=== PATIENT | male | born 1960 | race Caucasian/White ===

== ENCOUNTER 2022-08-02 13:48 | Emergency (ER) | payer OTHER, SELFPAY ==
[2022-08-02 14:24] VITALS: BP 120/76; PULSE 80; RESP 22; TEMP 37; O2SAT 96; BMI 47.3
--- NOTE | 2022-08-02 15:44 | ED.SOB ---
HPI - SOB/Dyspnea General Time Seen by Provider: 15:45 Date Seen: 08/02/22 Chief Complaint: Shortness of Breath/Dyspnea Stated Complaint: Post-op fever, shortness of breath Time Seen by Provider: 08/02/22 15:44 Source: patient, RN notes reviewed and old records reviewed Mode of arrival: ambulatory Limitations: no limitations History of Present Illness HPI Narrative: Simon is a 62-year-old male with history of cervical spine surgery x2 most recently July 23 as well as obesity, anxiety depression, hypertension who comes to the emergency room for evaluation of inability to swallow without coughing and chest congestion. Patient's is present and states that her has had cold-like symptoms for approximately 10 days. She notes that every time he tries to swallow or even take a pill he will have a coughing spell. She has been trying to cut up his pain medications into small pieces. He is on oxycodone 15 mg every 4 hours. He had run out of this medication and had not had it since yesterday had called up to his primary today. They called in his meds to [facility] but because he was in such discomfort he came here to the emergency room. They note that he has been choking on everything even water. They are also worried about congestive heart failure as she was told that his BUN and creatinine has been in the past. Preston also notes that his neck has not had increasing pain and today he had now has tingling in his fingertips bilaterally. His also states he has some tingling in his left foot but that is not new today. He has not had a fever. He does have allergies to penicillins. Primary physicians are at [place] and when they talked to the triage nurse today they were told to come for chest x-ray to our hospital. Related Data Home Medications Medication Instructions Recorded Confirmed acetaminophen 500 mg tablet mg 08/02/22 aspirin 81 mg tablet,delayed 81 mg PO DAILY 08/02/22 08/02/22 release (Adult Aspirin Regimen) atorvastatin 80 mg tablet mg 08/02/22 bupropion HCl 150 mg tablet,12 hr mg PO 08/02/22 sustained-release buspirone 10 mg tablet mg 08/02/22 cyclobenzaprine 5 mg tablet mg 08/02/22 escitalopram oxalate 20 mg tablet mg 08/02/22 gabapentin 300 mg capsule mg 08/02/22 hydrochlorothiazide 25 mg tablet mg 08/02/22 losartan 100 mg tablet mg 08/02/22 metoprolol succinate 100 mg mg PO 08/02/22 tablet,extended release 24 hr omeprazole 20 mg capsule,delayed 20 mg PO DAILY 08/02/22 08/02/22 release oxycodone 5 mg tablet mg 08/02/22 Allergies Allergy/AdvReac Type Severity Reaction Status Date / Time Penicillins Allergy Intermediate Verified 08/02/22 14:33 Review of Systems Status of ROS: Reports: 10 or more systems reviewed and unremarkable except as noted in History and below Const: Reports: fatigue; Denies: fever or chills Eyes: Denies: change in vision ENMT: Reports: throat pain, neck pain, difficulty swallowing and other Cardio: Reports: shortness of breath with exertion; Denies: chest pain or swelling of feet/ankles Resp: Reports: shortness of breath and cough GI: Reports: difficulty swallowing; Denies: abdominal pain, nausea or vomiting : Denies: painful urination Musculo: Reports: neck pain Neuro: Reports: numbness in extremities (Bilateral hands and left foot); Denies: headache Endo: Reports: fatigue PFSH [facility] Surgical History Status post laminectomy Exam Narrative: Exam Narrative: Limited history available in our system. Const: Vital Signs, click to edit/add: Vital Signs - 24 hr 08/02/22 14:24 08/02/22 15:56 08/02/22 16:52 Temperature 98.6 F Pulse Rate [Pulse Oximeter] 80 84 Respiratory Rate 22 16 Blood Pressure [Le ft Upper Arm] 120/76 143/65 H Pulse Oximetry 96 91 93 Oxygen Delivery Me thod Room Air Room Air Patient is alert and oriented. Initially whispering his responses. Seems very anxious. Wants to sit up and he is able to set himself up in bed. His eyes are clear. Oral cavity with moist mucous membranes. Neck is in a cervical collar. Heart with regular rate and rhythm. Oxygen levels vary between 93-98%. Lungs show decreased breath sounds in the bases bilaterally main airway congestion is audible. Abdomen is obese soft nontender. Lower extremities with 1+ peripheral edema. No calf tenderness. Sensation is intact as is strength. Upper extremity strength is intact. There is subjective decreased sensation bilaterally. Documenting provider has reviewed patient's vital signs: yes Course Vital Signs Vital signs: Initial Vital Signs Temperature 98.6 F 08/02/22 14:24 Temperature Source Temporal Artery Scan 08/02/22 14:24 Pulse Rate 80 08/02/22 14:24 Respiratory Rate 22 08/02/22 14:24 Blood Pressure 120/76 08/02/22 14:24 Blood Pressure Mean 90 08/02/22 14:24 Blood Pressure Position Supine 08/02/22 14:24 Pulse Oximetry 96 08/02/22 14:24 Oxygen Delivery Method 08/02/22 14:24 Vital Signs Temperature 98.6 F 08/02/22 14:24 Pulse Rate 80 08/02/22 14:24 Respiratory Rate 22 08/02/22 14:24 Blood Pressure 120/76 08/02/22 14:24 Pulse Oximetry 96 08/02/22 14:24 Oxygen Delivery Method 08/02/22 14:24 Temperature 98.6 F 08/02/22 14:24 Pulse Rate 95 08/02/22 18:45 Respiratory Rate 24 08/02/22 18:45 Blood Pressure 144/86 H 08/02/22 18:45 Pulse Oximetry 93 08/02/22 18:45 Oxygen Delivery Method 08/02/22 18:45 MDM - SOB/Dyspnea MDM Narrative Medical decision making narrative: 1. Pneumonia-definitely increased risk of aspiration pneumonia based on current symptoms. Chest x-ray shows increased lung markings in the right lower lung field. 2. Prevertebral edema-patient has had repeated episodes of dysphagia and choking episodes. CT soft tissue of the neck shows a large area of evolving seroma versus abscess at the level of C4. 3. Anxiety-I think part of patient's anxiety today was actually withdrawal from narcotics as he has been on oxycodone 50 mg every 4 hours since July 23. Now most recent administration was yesterday. Patient is given Dilaudid 0.5 mg and Ativan 0.5 mg IV. 4. Neck pain-improved after medication. Also noted improvement of the patient's subjective tingling of his hands. 5. Disposition-transfer to [facility]. Currently contacting hospitalist for acceptance. Will start antibiotic cefepime 2 g IV. Anaerobic coverage with Flagyl 500 mg IV. Will initiate late fluids at 125 an hour. Keep and patient NPO at this time. I had the pleasure of speaking with Dr. Vora, [place] campaign management senior manager. Patient has been accepted to [place]. Medical Assistant Internal Medicine request that I add vancomycin 2 g and dexamethasone 10 mg IV to medications. Patient did receive additional dose of Dilaudid. I did explain to him I would like to keep him comfortable but I would want to avoid over sedating him in this particular circumstance. His oxygen levels continue to be near 100%. Patient will be ground ambulance transfer to [place]. Medical Records Attestation: I reviewed the patient's medical records. Lab Data Attestation: I reviewed the patient's lab results. Labs: Lab Results 08/02/22 08/02/22 08/02/22 Range/Units 16:10 16:10 20:00 WBC 13.84 H (4.50-11.00) K/uL RBC 4.26 L (4.30-5.90) m/uL Hgb 12.7 L (13.5-17.5) gm/dL Hct 38.5 (37.0-53.0) % MCV 90 (80-100) fL MCH 30 (26-34) pg MCHC 33 (32-36) gm/dL RDW Coeff of Rosa 13.0 (11.5-15.5) % Plt Count 324 (140-440) K/uL Neut % (Auto) 85.3 H (42.0-72.0) % Lymph % (Auto) 7.1 L (20-44) % Whitley % (Auto) 6.2 (0.0-11.0) % Eos % (Auto) 0.4 (0.0-7.0) % Baso % (Auto) 0.3 (0.0-3.0) % Neut # (Auto) 11.80 H (1.7-7.0) K/uL Lymph # (Auto) 1.00 (0.90-2.90) K/uL Whitley # (Auto) 0.90 (0.00-0.90) K/UL Eos # (Auto) 0.10 (0.00-0.50) K/uL Baso # (Auto) 0.00 (0.00-0.30) K/uL Abs Immat Gran (auto) 0.10 (0.00-0.30) K/uL Imm/Tot Granulo (auto) 0.7 % Sodium 132 L (135-149) mmol/L Potassium 4.0 (3.6-5.1) mmol/L Chloride 93 L (96-114) mmol/L Carbon Dioxide 29 (20-32) mmol/L BUN 12 (7-30) mg/dL Creatinine 0.8 (0.5-1.5) mg/dL Estimated Creat Clear 76.59 Estimated GFR 100 ml/min Glucose 105 (60-115) mg/dL Calcium 9.0 (8.4-10.6) mg/dL Total Bilirubin 1.2 (0.1-1.5) mg/dL AST 23 (12-35) U/L ALT 26 (4-50) U/L Alkaline Phosphatase 165 H (40-150) U/L Troponin I < 0.01 L (0.01-0.04) ng/mL C-Reactive Protein 8.3 H (0.5-1.0) mg/dL NT-Pro-B Natriuret Pep 240 H (0-125) PG/mL Total Protein 7.7 (6.0-8.3) g/dL Albumin 3.9 (3.3-5.0) g/dL SARS-CoV-2 (PCR) Negative SARS-CoV-2 (Negative) Imaging Data Cervical spine CT: Attestation: I have reviewed the pertinent imaging results. Radiologist's impression: ?Large prevertebral soft tissue swelling with focal fluid collection and emphysema at the C4 level. Findings could represent postoperative seroma, with developing phlegmon/abscess not completely excluded. 2. Moderate mass effect upon the upper airway. Cervical spine: 1. Interval ACDF C3-5 with C4 corpectomy. Interval posterior fusion C3-6. Mature ACDF and osseous fusion at C5-7. Hardware artifact obscures the canal at the operative levels. 2. At C2-3, disc osteophyte complex with progressed now moderate spinal canal and severe bilateral neural foraminal narrowing. 3. Erosive changes at the C1-2 articulation with degenerative pannus formation. 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 Findings could reflect calcium pyrophosphate deposition disease or rheumatoid arthritis. Soft tissue neck CT: Attestation: I have reviewed the pertinent imaging results. Radiologist's impression: ?Large prevertebral soft tissue swelling with focal fluid collection and emphysema at the C4 level. Findings could represent postoperative seroma, with developing phlegmon/abscess not completely excluded. 2. Moderate mass effect upon the upper airway. Cervical spine: 1. Interval ACDF C3-5 with C4 corpectomy. Interval posterior fusion C3-6. Mature ACDF and osseous fusion at C5-7. Hardware artifact obscures the canal at the operative levels. 2. At C2-3, disc osteophyte complex with progressed now moderate spinal canal and severe bilateral neural foraminal narrowing. 3. Erosive changes at the C1-2 articulation with degenerative pannus formation. 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 Findings could reflect calcium pyrophosphate deposition disease or rheumatoid arthritis. Chest x-ray: Attestation: I have reviewed the pertinent imaging results. My impression: Increased lung markings bilateral lower lung guajardo. Radiologist's impression: Elevation of the right hemidiaphragm. Small patchy opacity in the right lung base may represent atelectasis or infiltrate. No pleural effusion or pneumothorax. Heart size upper limits of normal. Normal pulmonary vascularity. Sternotomy. Small hiatal hernia. Cervical spine hardware. Degenerative changes of left acromioclavicular joint. IMPRESSION: Small patchy opacity in the right lung base may represent atelectasis or infiltrate. ECG Data Attestation: I personally reviewed and interpreted this ECG as follows: ECG interpretation date: 08/02/22 ECG interpretation time: 18:00 Prior ECG tracings: not available for review Interpretation: EKG 1. By my review shows sinus rhythm at a rate of 89. No acute ST or T-wave changes are noted. Critical Care Time Critical Care Time Critical Care Time: Yes Attestation: The patient required my highest level preparedness to intervene emergently and I personally spent this critical care time directly and personally managing the patient. This critical care time included: Obtaining a history; Examining the patient; Pulse oximetry; Ordering and reviewing of studies; Arranging urgent treatment with development of a management plan; Evaluation of patients response to treatment; Frequent reassessment discussions with other providers. This critical care time was performed to assess and manage the high probability of imminent life-threatening deterioration that could result in multiorgan failure. It was exclusive of separate billable procedures and treating other patients and teaching time. Total Critical Care Time in Minutes: 30 Discharge Plan Discharge Clinical Impression: Anxiety, Dysphagia, Pneumonia Patient Disposition: [facility] Condition: Improved Prescriptions: No Action bupropion HCl 150 mg tablet sustained-release 12 hr PO atorvastatin 80 mg tablet metoprolol succinate 100 mg tablet extended release 24 hr PO acetaminophen 500 mg tablet buspirone 10 mg tablet gabapentin 300 mg capsule hydrochlorothiazide 25 mg tablet losartan 100 mg tablet oxycodone 5 mg tablet Label Comments: TAKE ONE TO THREE TABLETS EVERY 4 TO 6 HOURS NEEDED FOR PAIN escitalopram oxalate 20 mg tablet cyclobenzaprine 5 mg tablet aspirin [Adult Aspirin Regimen] 81 mg tablet,delayed release (DR/EC) 81 mg PO DAILY omeprazole 20 mg capsule,delayed release(DR/EC) 20 mg PO DAILY Stand Alone Forms: [employer] Info Instructions
[2022-08-02 15:56] VITALS: O2SAT 91
--- NOTE | 2022-08-02 15:56 | CRLHL7_ITS ---
For Patients: As a result of the Century Cures Act, medical imaging exams and procedure reports are released immediately into your electronic medical record. You may view this report before your referring provider. If you have questions, please contact your health care provider. INDICATION: Congestion. TECHNIQUE: Chest 1 view. COMPARISON: None. FINDINGS: Elevation of the right hemidiaphragm. Small patchy opacity in the right lung base may represent atelectasis or infiltrate. No pleural effusion or pneumothorax. Heart size upper limits of normal. Normal pulmonary vascularity. Sternotomy. Small hiatal hernia. Cervical spine hardware. Degenerative changes of left acromioclavicular joint. IMPRESSION: Small patchy opacity in the right lung base may represent atelectasis or infiltrate. Dictated by Cally Garcia MD @ 08/02/2022 4:59:49 PM (Electronically Signed)
[2022-08-02 16:18] LABS: Basophils Percent Auto 0.3 % (0.0-3.0); Eosinophils Percent Auto 0.4 % (0.0-7.0); Hematocrit 38.5 % (37.0-53.0); Hemoglobin* 12.7 gm/dL (13.5-17.5); Immature Granulocytes Pct Auto 0.7 %; Lymphocytes Percent Auto 7.1 % (20-44); Mean Corpuscular HGB Conc 33 gm/dL (32-36); Mean Corpuscular Hemoglobin 30 pg (26-34); Mean Corpuscular Volume 90 fL (80-100); Monocytes Percent Auto 6.2 % (0.0-11.0); Neutrophils Percent Auto 85.3 % (42.0-72.0); Platelet Count* 324 K/uL (140-440); Red Blood Count 4.26 m/uL (4.30-5.90); White Blood Count* 13.84 K/uL (4.50-11.00)
[2022-08-02] MEDS: LORazepam 2 MG/ML inj 0.5 MG IVP (16:35)
[2022-08-02] MEDS: HYDROmorphone 0.5 mg/0.5 ml inj IVP ×2 (16:35→19:04)
[2022-08-02 16:38] LABS: Albumin* 3.9 g/dL (3.3-5.0); Chloride* 93 mmol/L (96-114); Slide Review Reflex No
[2022-08-02 16:39] LABS: Sodium* 132 mmol/L (135-149)
[2022-08-02 16:41] LABS: Bilirubin Total* 1.2 mg/dL (0.1-1.5); Creatinine* 0.8 mg/dL (0.5-1.5); Est. Creatinine Clearance* 76.59; Estimated Glomerular Filt Rate 100 ml/min
[2022-08-02 16:42] LABS: Alanine Aminotransferase* 26 U/L (4-50); Alkaline Phosphatase* 165 U/L (40-150); Aspartate Amino Transferase* 23 U/L (12-35); Blood Urea Nitrogen* 12 mg/dL (7-30); Carbon Dioxide* 29 mmol/L (20-32); Glucose* 105 mg/dL (60-115); Total Protein* 7.7 g/dL (6.0-8.3)
[2022-08-02 16:45] LABS: C Reactive Protein* 8.3 mg/dL (0.5-1.0)
[2022-08-02 16:50] LABS: NT Pro B Type NatriureticPept* 240 PG/mL (0-125)
[2022-08-02 16:52] VITALS: BP 143/65; PULSE 84; RESP 16; O2SAT 93
--- NOTE | 2022-08-02 16:54 | CRLHL7_ITS ---
For Patients: As a result of the Century Cures Act, medical imaging exams and procedure reports are released immediately into your electronic medical record. You may view this report before your referring provider. If you have questions, please contact your health care provider. INDICATION: Cervical spine surgery. Choking. TECHNIQUE: CT of the cervical spine performed without intravenous contrast. CT of the neck soft tissues performed with IV contrast. Contrast: 148 cc Isovue 370. COMPARISON: Cervical spine MRI 01/07/2015. FINDINGS: Neck soft tissues: There is large amount of prevertebral edema, most notably at the upper cervical levels. This is most notable at the C2-3 level with approximately 2.8 cm of AP diameter thickening. There is a focal fluid collection with internal emphysema present at the C4 level which measures up to approximately 1.9 by 1.7 by 2.8 cm. There is resultant moderate mass effect upon the upper airway. No discrete hyper enhancing mucosal lesion present within the nasopharynx, oropharynx or hypopharynx. The supraglottic, glottic and infraglottic spaces are without hyper enhancing mucosal lesion. The parotid and submandibular glands appear unremarkable. The thyroid gland is normal. No lymphadenopathy identified. The visualized major vascular structures appear intact. The visualized intracranial components appear grossly intact. Visualized orbits and contents appear unremarkable. Small left maxillary sinus mucous retention cyst/polyp. Scattered atelectasis within the visualized lung apices. Trace pleural effusions. Cervical spine: Interval postsurgical changes of ACDF C3-C5 with C4 corpectomy. Posterior fusion C3-6. Mature ACDF hardware and osseous fusion C5-7. Erosive changes noted at the dens, with C1-2 articulation pannus formation. Reversal of the cervical lordosis apex at C3. At C2-3, disc osteophyte complex with moderate spinal canal narrowing. Severe bilateral neural foraminal narrowing secondary to uncovertebral joint and facet hypertrophy. Postsurgical changes at the remaining cervical levels, with obscuration by hardware. The canal is obscured at the operative levels and patency cannot be assessed. Moderate to severe joint space loss with chondrocalcinosis of the right temporomandibular joint. IMPRESSION: Neck soft tissues: 1. Large prevertebral soft tissue swelling with focal fluid collection and emphysema at the C4 level. Findings could represent postoperative seroma, with developing phlegmon/abscess not completely excluded. 2. Moderate mass effect upon the upper airway. Cervical spine: 1. Interval ACDF C3-5 with C4 corpectomy. Interval posterior fusion C3-6. Mature ACDF and osseous fusion at C5-7. Hardware artifact obscures the canal at the operative levels. 2. At C2-3, disc osteophyte complex with progressed now moderate spinal canal and severe bilateral neural foraminal narrowing. 3. Erosive changes at the C1-2 articulation with degenerative pannus formation. 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 Findings could reflect calcium pyrophosphate deposition disease or rheumatoid arthritis. Please note that all CT scans at this facility use dose modulation, iterative reconstruction, and/or weight-based dosing when appropriate to reduce radiation dose to as low as reasonably achievable. Dictated by Alin Garcia MD @ 08/02/2022 6:12:29 PM (Electronically Signed)
[2022-08-02 16:57] LABS: Troponin I* < 0.01 ng/mL (0.01-0.04)
[2022-08-02 18:45] VITALS: BP 144/86; PULSE 95; RESP 24; O2SAT 93
[2022-08-02] MEDS: CEFEPIME HCL 2 GM in 0.9 % SODIUM CHLORIDE Mini-bag 100 ML IVPB (19:02)
[2022-08-02] MEDS: 0.9 % SODIUM CHLORIDE 1000 ml 1,000 ML 125 ML IV (19:03)
[2022-08-02] MEDS: dexAMETHasone 10 MG/ML inj IVP (19:51)
[2022-08-02] MEDS: metroNIDAZOLE 500 MG/100 ML PIGGYBACK IVPB (19:51)
--- NOTE | 2022-08-02 20:24 | ED.NURSE ---
Dispatch contacted for ALS transfer.
[2022-08-02 21:16] LABS: SARS PCR* Negative SARS-CoV-2 (Negative)
--- NOTE | 2022-08-02 21:30 | ED.NURSE ---
Patient will be transported to [facility] via [facility] with Vanco infusing in left AC IV. RN to RN report was given. was here at time of transfer.
== END 2022-08-02 22:19 | disposition short-term general hospital (02) ==
PROVIDERS: Emergency Provider Family Medicine; PCP Internal Medicine
DX: J18.9 Pneumonia, unspecified organism (principal); R13.10 Dysphagia, unspecified; F41.9 Anxiety disorder, unspecified
CPT/HCPCS: 36415; 70491; 71045; 72125; 80053; 83880; 84484; 85025; 86140; 87635; 93005; 94761; 96365; 96375; 96376; 99285; 99291; J0692; J1100; J1170; J2060; J3370; J7030; J7120; Q9967; S0030

== ENCOUNTER 2022-08-02 20:40 | Outpatient (CLI) | payer OTHER, SELFPAY | END 2022-08-02 20:41 | disposition home or self-care (01) | LOC: AMB 08-23 12:50 | PROVIDERS: PCP Internal Medicine; Visit Provider Family Medicine | DX: J18.9 Pneumonia, unspecified organism (principal); R13.10 Dysphagia, unspecified; F41.9 Anxiety disorder, unspecified | CPT/HCPCS: A0425; A0434 ==

== ENCOUNTER 2022-10-04 23:31 | Emergency (ER) | payer OTHER, SELFPAY ==
[2022-10-04 23:40] VITALS: BP 197/96; PULSE 64; TEMP 35.7; O2SAT 96; BMI 45.9
[2022-10-04 23:52] VITALS: BP 192/101; PULSE 63; O2SAT 96
[2022-10-04 23:53] VITALS: PULSE 63; O2SAT 96
[2022-10-05] VITALS (15 sets, daily range): BP systolic 164–197; BP diastolic 84–103; PULSE 55–64; RESP 16–18; TEMP 36.7; O2SAT 94–96
[2022-10-05] MEDS: KETOROLAC 30 MG/ML inj IVP (00:40)
[2022-10-05] MEDS: 0.9 % SODIUM CHLORIDE 1000 ml 1,000 ML IV (00:40)
[2022-10-05] MEDS: cloNIDine HCL 0.1 MG TABLET PO (01:00)
[2022-10-05] MEDS: OXYCODONE 5 MG TABLET 10 MG PO (01:01)
[2022-10-05] MEDS: METOPROLOL TARTRATE 1 MG/ML inj 5 MG IVP (04:05)
--- NOTE | 2022-10-05 09:02 | ED.GENADULT ---
HPI - General Adult General Chief complaint: High Blood Pressure Stated complaint: headache, blood pressure 178/97 Time Seen by Provider: 10/04/22 23:47 History of Present Illness HPI narrative: 62-year-old man accompanied by spouse with concern of elevated blood pressures. Measured his own blood pressure in 170s over 80s before finally deciding to come to the emergency department. Have been checking with home wrist cuff. Was actually just hospitalized for a couple of days and D1 in [place] in an effort to control blood pressures. Last seen in this department 2 months ago after 2 spine/neck surgeries and subsequent seroma or abscess in the prevertebral space. Transferred to [place] where I believe was diagnosed with pneumonia, aspiration? pneumonia. Since this time has continued to have headaches. Does still have some pain with swallowing. Remains in a [place] collar for another 2 weeks. Has apparently been allowed to remove this at rest. Is not having any fevers. No visual disturbance. No abdominal pain. No nausea. Headache is described or gestured to the right latter day/forehead area but then broadly across his forehead. Does have pain in the back of his neck. Numerous adjustments have been made to his blood pressure medications an effort to control them. Has never had abdominal ultrasound that he can recall. Sounds like upon discharge from [facility] eventually ran out of clonidine for about a week which had been initiated at [place]. Got restarted on that through Primary Care however blood pressures remained elevated. On this at last admission with discharge 4 days ago was initiated on carvedilol and decreased on clonidine to 0.1 mg b.i.d.. Headaches have continued to wax and wane. He was advised not to take Excedrin which is about the only thing that has been helping him as there are concerns apparently of rebound headache. He maintains that he has been taking medications as prescribed. Later questioning also reveals that he has been discontinued on gabapentin. Early this morning was his last dose of oxycodone. I think there had been some question at 1 point of potential withdrawal headache from oxycodone/opiates. He has been hydrating aggressively per spouse report. Related Data Home Medications Medication Instructions Recorded Confirmed acetaminophen 500 mg tablet mg 08/02/22 aspirin 81 mg tablet,delayed 81 mg PO DAILY 08/02/22 08/02/22 release (Adult Aspirin Regimen) atorvastatin 80 mg tablet mg 08/02/22 bupropion HCl 150 mg tablet,12 hr mg PO 08/02/22 sustained-release buspirone 10 mg tablet mg 08/02/22 cyclobenzaprine 5 mg tablet mg 08/02/22 escitalopram oxalate 20 mg tablet mg 08/02/22 gabapentin 300 mg capsule mg 08/02/22 hydrochlorothiazide 25 mg tablet mg 08/02/22 losartan 100 mg tablet mg 08/02/22 metoprolol succinate 100 mg mg PO 08/02/22 tablet,extended release 24 hr omeprazole 20 mg capsule,delayed 20 mg PO DAILY 08/02/22 08/02/22 release oxycodone 5 mg tablet mg 08/02/22 carvedilol 25 mg tablet mg 10/04/22 clonidine HCl 0.1 mg tablet mg 10/04/22 Allergies Allergy/AdvReac Type Severity Reaction Status Date / Time Penicillins Allergy Intermediate Verified 08/02/22 14:33 Review of Systems Status of ROS: Reports: 10 or more systems reviewed and unremarkable except as noted in History and below PFSH [facility] Surgical History Status post laminectomy Social History Smoking Status: Former smoker How often do you have a drink containing alcohol: 2-3 times a week How many standard drinks containing alcohol do you have on a typical day: 1 or 2 How often do you have six or more drinks on one occasion: Never AUDIT-C Alcohol total score: 3 Non-prescribed substance use: denies use Exam Narrative: Exam Narrative: Pleasant. Seems a little uncomfortable. Initially wearing [place]. skin is warm and dry. Trace lower extremity dependent edema. Congested somewhat in breathing probably attributed I would say to obesity and this [place]. lungs appear to be clear. Cranial nerves 2-12 look to be intact. Mild ocular proptosis? Head is atraumatic without pulsatile swelling the latter day area. Neck appears to be reasonably supple. He is rather sore to palpation in the low paracervical musculature and medial trapezial musculature. No tenderness to palpation otherwise in the back. No midline neck tenderness. Heart with regular rate and rhythm albeit little distant. Abdomen is soft obese and nontender. Strong and equal radial pulses. Const: Vital Signs, click to edit/add: Vital Signs - 24 hr 10/04/22 23:40 10/04/22 23:52 10/04/22 23:53 Temperature 96.3 F L Pulse Rate 63 63 Pulse Rate [Pulse Oximeter] 64 Respiratory Rate Blood Pressure 192/101 H Blood Pressure [Ri ght Upper Arm] 197/96 H Pulse Oximetry 96 96 96 Oxygen Delivery Me thod Room Air 10/05/22 00:40 10/05/22 01:56 10/05/22 00:02 Temperature 98.0 F 98.0 F Pulse Rate 62 Pulse Rate [Pulse Oximeter] Respiratory Rate 18 Blood Pressure 183/90 H Blood Pressure [Ri ght Upper Arm] Pulse Oximetry 95 Oxygen Delivery Me thod 10/05/22 00:32 10/05/22 01:02 10/05/22 01:31 Temperature Pulse Rate 60 59 L 58 L Pulse Rate [Pulse Oximeter] Respiratory Rate 18 18 18 Blood Pressure 174/98 H 178/87 H 189/97 H Blood Pressure [Ri ght Upper Arm] Pulse Oximetry 96 95 94 Oxygen Delivery Me thod 10/05/22 02:02 10/05/22 02:48 10/05/22 03:02 Temperature Pulse Rate 56 L 56 L 57 L Pulse Rate [Pulse Oximeter] Respiratory Rate 18 18 18 Blood Pressure 184/88 H 186/94 H 193/96 H Blood Pressure [Ri ght Upper Arm] Pulse Oximetry 95 96 94 Oxygen Delivery Me thod 10/05/22 04:00 10/05/22 04:02 10/05/22 04:09 Temperature Pulse Rate 55 L 61 62 Pulse Rate [Pulse Oximeter] Respiratory Rate 18 Blood Pressure 188/103 H 164/84 H Blood Pressure [Ri ght Upper Arm] Pulse Oximetry 95 96 96 Oxygen Delivery Me thod 10/05/22 00:33 10/05/22 04:32 10/05/22 04:53 Temperature 98.0 F Pulse Rate 55 L Pulse Rate [Pulse Oximeter] 64 Respiratory Rate 16 16 Blood Pressure 177/84 H Blood Pressure [Ri ght Upper Arm] 197/96 H Pulse Oximetry 96 96 Oxygen Delivery Me thod Documenting provider has reviewed patient's vital signs: yes Course Vital Signs Vital signs: Initial Vital Signs Temperature 96.3 F L 10/04/22 23:40 Temperature Source Temporal Artery Scan 01/09/23 23:40 Pulse Rate 64 10/04/22 23:40 Blood Pressure 197/96 H 10/04/22 23:40 Blood Pressure Mean 129 10/04/22 23:40 Blood Pressure Position Sitting 10/04/22 23:40 Pulse Oximetry 96 10/04/22 23:40 Oxygen Delivery Method 10/04/22 23:40 Vital Signs Temperature 96.3 F L 10/04/22 23:40 Pulse Rate 64 10/04/22 23:40 Blood Pressure 197/96 H 10/04/22 23:40 Pulse Oximetry 96 10/04/22 23:40 Oxygen Delivery Method 10/04/22 23:40 Temperature 98.0 F 10/05/22 04:53 Pulse Rate 64 10/05/22 04:53 Respiratory Rate 16 10/05/22 04:53 Blood Pressure 197/96 H 10/05/22 04:53 Pulse Oximetry 96 10/05/22 04:32 Oxygen Delivery Method 10/04/22 23:40 Medical Decision Making MDM Narrative Medical decision making narrative: Reviewing records from recent visit looks to show labs WNL. Creatinine of 0.85 Blood pressure on discharge I believe was 116/47 With monitor, Mr. Zhu on compliance monitor oximetry during time in emergency department without event other than elevated pressures. Given IV fluids and ketorolac apart treat his headache as well with clonidine 0.1 mg. Then as needed, treating usual pain with 10 mg of oxycodone. Is also ordered for 5 mg of Lopressor. I realize at 1 point that the cuff is actually too small so changed to a larger cuff however blood pressure seem more elevated. Final measuring on the right arm drops pressures to more acceptable level though still 160s over 80s. Headache improves to 3/10 from 7+. Seemed more focused. I do think that a major component of headache is probably coming from neck issues and continuing to wear this [place] tension headache seems to be good portion of this. Medical Records Medical records reviewed: Yes I reviewed the patient's medical records Discharge Plan Discharge Clinical Impression: Hypertensive urgency, Tension headache, Headache Patient Disposition: Home w/ Parent or Adult Condition: Stable Additional Instructions: Continue to hydrate. Yes. Like you had been instructed before, take your usual medications and if pressures still seem high in an hour, can take another 0.1 mg of clonidine for total of 0.2 mg 2 times daily. I do think that follow-up in primary care to begin broader evaluation for these difficult to manage blood pressures would be in order. This might include some other imaging. I think it would be alright to restart your gabapentin low-dose as discussed. Here and there Excedrin equivalent would be all right too I think; remember that it does contain caffeine... and aspirin I am hopeful that as you transition out of this [facility] and become generally more comfortable that your headache should also improve. If really needed, oxycodone from [facility]. Prescriptions: No Action bupropion HCl 150 mg tablet sustained-release 12 hr PO atorvastatin 80 mg tablet metoprolol succinate 100 mg tablet extended release 24 hr PO acetaminophen 500 mg tablet buspirone 10 mg tablet gabapentin 300 mg capsule hydrochlorothiazide 25 mg tablet losartan 100 mg tablet oxycodone 5 mg tablet Label Comments: TAKE ONE TO THREE TABLETS EVERY 4 TO 6 HOURS NEEDED FOR PAIN escitalopram oxalate 20 mg tablet cyclobenzaprine 5 mg tablet aspirin [Adult Aspirin Regimen] 81 mg tablet,delayed release (DR/EC) 81 mg PO DAILY omeprazole 20 mg capsule,delayed release(DR/EC) 20 mg PO DAILY carvedilol 25 mg tablet Label Comments: TAKE ONE TABLET BY MOUTH TWICE A DAY clonidine HCl 0.1 mg tablet Label Comments: TAKE ONE TABLET BY MOUTH TWICE A DAY Follow Up/Referrals: Amalia Sheth [Primary Care Provider] - Stand Alone Forms: [facility] Info Instructions
== END 2022-10-05 04:54 | disposition home or self-care (01) ==
PROVIDERS: Emergency Provider Family Medicine; PCP Internal Medicine
DX: I16.0 Hypertensive urgency (principal); R51.9 Headache, unspecified
CPT/HCPCS: 94761; 96374; 99283; 99284; A9270; J1885; J7030

== ENCOUNTER 2024-02-28 13:06 | Outpatient (CLI) | payer MEDICAID, SELFPAY ==
--- OUTSIDE RECORDS SUMMARY | 2024-02-28 13:13 | XMS_ITS | Continuity of Care Document ---
Author Organization [facility] Address [address] [place] [address] Phone Care Team Providers Care Elevator Supervisor Name Role Phone Kristin Hamilton Unavailable Unavailable Allergies, Adverse Reactions, Alerts Substance Reaction Status Criticality Penicillins Active No Information Medications Medication Instructions Dosage Effective Dates (start - stop) Status Comments oxycodone 5 mg tablet Take 1 tablet every 6-8 hours as needed for severe pain - Active Medrol (Nahum) 4 mg tablets in a dose pack take by Oral route as written on package Not Available - Active oxycodone 5 mg tablet Take 1 tablet every 6-8 hours as needed for severe pain - Active doxycycline hyclate 100 mg capsule take 1 capsule by oral route 2 times every day for one week - Active MELOXICAM (unknown strength) Not Available - Active PROAIR DIGIHALER (unknown strength) Not Available - Active APLENZIN (unknown strength) Not Available - Active CYCLOBENZAPRINE HCL ER (unknown strength) Not Available - Active HYDROCHLOROTHIAZIDE (unknown strength) Not Available - Active GABAPENTIN (unknown strength) Not Available - Active METOPROLOL TARTRATE (unknown strength) Not Available - Active ESCITALOPRAM OXALATE (unknown strength) Not Available - Active OMEPRAZOLE (unknown strength) Not Available - Active LIPITOR (unknown strength) Not Available - Active METOPROLOL SUCCINATE (unknown strength) Not Available - Active STANBACK ANALGESIC (unknown strength) Not Available - Active FISH OIL (unknown strength) Not Available - Active LOSARTAN POTASSIUM (unknown strength) Not Available - Active FLOMAX (unknown strength) Not Available - Active Procedures Procedure Date Postop Followup Visit Remove Anterior Instrumentation 024 Office/Outpatient Visit,Est, Mod 2023 Office/Outpatient Visit,Est, Mod 2022 Office/Outpatient Visit,Est, Mod 2022 Office/Outpatient Visit,Est, Mod 2022 Office/Outpatient Visit,Est, Mod 2022 Postop Followup Visit PSF, Cervical (Below C2) - PA PSF - Additional Level(s) - PA Posterior Instrumentation, 3-6 Segments - PA Autograft, From Same Incision Pa Assist PSF, Cervical (Below C2) PSF - Additional Level(s) Posterior Instrumentation, 3-6 Segments Allograft, Morcelized, and/or BMP Autograft, From Same Incision Postop Followup Visit Corpectomy, Cervical - PA Anterior Interbody Fusion, Cervical - PA Anterior Interbody Fusion - Additional L evel - PA Anterior Instrumentation, 2-3 Segments - PA PEEK/ Cage/ Implant, For Corpectomy & Fu vidal - PA Anterior Interbody Fusion, Cervical Anterior Interbody Fusion - Additional L evel(s) Corpectomy, Cervical Anterior Instrumentation, 2-3 Segments S PEEK/ Cage/ Implant, For Corpectomy & Fu vidal Autograft, From Same Incision OFFICE/OUTPATIENT VISIT EST Phone Office/Outpatient Visit,Est, Mod 2021 Postop Followup Visit Postop Followup Visit Lami, Facetectomy/Foraminotomy, Lumbar ( Stenosis) Lami, Facetectomy/Foraminotomy - Additio nal Level(s) - PA Lami, Facetectomy/Foraminotomy, Lumbar ( Stenosis) Lami, Facetectomy/Foraminotomy - Additio nal Level(s) Office/Outpatient Visit,Est, Mod 2019 Office/Outpatient Visit,New, Mod 2019 Office/Outpatient Visit,Est, Mod 2014 X-Ray Exam Of Neck Spine2-3 Views Office/Outpatient Visit,Est, Low 2013 X-Ray Exam Of Neck Spine2-3 Views Postop Followup Visit X-Ray Exam Of Neck Spine, 4+ Views Postop Followup Visit X-Ray Exam Of Neck Spine2-3 Views Remove Vertebral Body, Cerv, Single Neck Spine Fusion (Cerv,Below C2) Spinal Fusion, Ea Add'L Interspace Insert Spine Fix Dev, Ant, 2-3 Seg Apply Spinal Prosthetic Device 13 Autograft, Spine Surgery, Local 013 Pa Assist Remove Vertebral Body, Cerv, S chato Pa Assist Cervical Spine Fusion (Cerv,Be low C2) Pa Assist Spinal Fusion, Ea Add'L Inters pace Pa Assist Insert Spine Fix Dev, Ant, 2-3 Seg Pa Assist Apply Spinal Prosthetic Device Office/Outpatient Visit,New, Mod 2012 X-Ray Exam Of Neck Spine, 4+ Views Advance Directives Directive Yes / No Effective Date File Name No Information Encounters Encounter Description Practice Location Reason(s) For Visit Diagnoses Date Provider Providers Copied on Encounter Christine, [address], [place], [place], [id number], [place] tel:[phone] [facility] - Jacque No Information 4 Awais Foster. [facility], [address], [place], [address], [place]. tel:[phone] [facility], [address], [place], [id number], [place] tel:[phone] [facility] Pseudarthrosi s after fusion or arthrodesisAr throdesis status 4 Awais Foster. [facility], [address], [place], [address], [place]. tel:[phone] Referring Provider: Amalia Sheth, [address], [address]. tel:[phone] [facility], [address], [place], [place], [id number], [place] tel:[phone] [facility] No Information 4 Meredith Pinzon. [facility], [address], [address], [place], [id number], [place]. [phone] [facility], [address] [place] [address], [id number], [place] tel:[phone] [facility] No Information 4 Meredith Pinzon. [facility], [address], [address], [place], [id number], [place]. tel:[phone] Referring Provider: Amalia Sheth, [address], [address]. tel:[phone] Office/Outpa tient Visit,Est, Mod [facility], [address] [place] [address], [id number], [place] tel:[phone] [facility] Arthrodesis statusPseudar throsis after fusion or arthrodesis 4 Meredith Pinzon. [facility], [address], [address], [place], [id number], [place]. tel:[phone] Referring Provider: Amalia Sheth, [address], [address]. tel:[phone] Office/Outpa tient Visit,Est, Mod [facility], [address], [place], [id number], [place] tel:[phone] [facility] [place] Arthrodesis status 3 Meredith Pinzon. [facility], [address], [address], [id number], [place]. tel:[phone] Referring Provider: Amalia Sheth, [address], [address]. tel:[phone] Office/Outpa tient Visit,Est, Mod [facility], [address] [place] [address], [id number], [place] tel:[phone] [facility] [place] Arthrodesis status 3 Meredith Pinzon. [facility], [address], [address], [id number], [place]. tel:[phone] Referring Provider: Amalia Sheth, [address], [address]. tel:[phone] Office/Outpa tient Visit,Est, Mod [facility], [address], [place], [place], [id number], [place] tel:[phone] [facility] Arthrodesis status 3 Meredith Pinzon. [facility], [address], [address], [id number], [place]. tel:[phone] Referring Provider: Amalia Sheth, [address], [address]. tel:[phone] Office/Outpa tient Visit,Est, Mod [facility], [address], [place], [place], [id number], [place] tel:[phone] [facility] [place] No Information 3 Meredith Pinzon. [facility], [address], [address], [id number], [place]. tel:[phone] Referring Provider: Amalia Sheth, [address], [address]. tel:[phone] [facility], [address], [place], [place], [id number], [place] tel:[phone] [facility] [place] Arthrodesis status 2 Meredith Pinzon. [facility], [address] [place], [address], [id number], [place]. tel:[phone] Referring Provider: Amalia Sheth, [address], [address]. tel:[phone] [facility], [address], [place], [place], [id number], [place] tel:[phone] [facility] No Information 2 Awaisabigail Garciaa. [facility], [address] [place] [address], [address], [place]. tel:[phone] Referring Provider: Amalia Sheth, [address], [address]. tel:[phone] [facility], [address] [place] [address], [id number], [place] tel:[phone] [facility] No Information 2 Meredith Pinzon. [facility], [address] [place] [address], [address], [id number], [place]. tel:[phone] Referring Provider: Amalia Sheth, [address], [address]. tel:[phone] [facility], [address], [place], [id number], [place] tel:[phone] [facility] [place] Arthrodesis status 2 Awais Kristin. [facility], [address] [place] [address], [address], [place]. tel:[phone] Referring Provider: Amalia Sheth, [address], [address]. tel:[phone] [facility], [address] [place] [address], [id number], [place] tel:[phone] [facility] No Information May- 2 Awais Foster. [facility], [address], [facility], [place]. tel:[phone] Referring Provider: Amalia Sheth, [address], [address]. tel:[phone] [facility], [address] [place] [address], [id number], [place] tel:[phone] [facility] No Information May- 2 Meredith Pinzon. [facility], [address] [place], [address], [id number], [place]. tel:[phone] Referring Provider: Amalia Sheth, [address], [address]. tel:[phone] OFFICE/OUTPA TIENT VISIT EST Phone [facility], [address] [place] [address], [id number], [place] tel:[phone] [facility] No Information 2 Meredith Pinzon. [facility], [address] [place], [address], [id number], [place]. tel:[phone] Referring Provider: Amalia Sheth, [address], [address]. tel:[phone] Office/Outpa tient Visit,Est, Mod [facility], [address] [place] [address], [id number], [place] tel:[phone] [facility] [place] Arthrodesis statusSpinal stenosis, lumbar region with neurogenic claudicationO ther spondylosis with myelopathy, lumbar regionSpinal stenosis, cervical regionMyelopa thy 2 Meredith Pinzon. [facility], [address], [address], [id number], [place]. tel:[phone] Referring Provider: Amalia Sheth, [address], [address]. tel:[phone] [facility], [address], [place], [place], [id number], [place] tel:[phone] [facility] Encounter for other specified surgical aftercareRadi culopathy, lumbar region Avni- 0 1 Meredith Pinzon. [facility], [address], [address], [place], [place], [id number], [place]. tel:[phone] Referring Provider: Amalia Sheth, [facility] [address] [place] [address], [place], [address]. tel:[phone] [facility], [address] [place] [address], [id number], [place] tel:[phone] [facility] Encounter for other specified surgical aftercare Nov-3 0-202 0 No Information Referring Provider: Amalia Sheth, [address], [address]. tel:[phone] [facility], [address] [place] [address], [id number], [place] tel:[phone] [facility] No Information 0 No Information Referring Provider: Amalia Sheth, [address], [address]. tel:[phone] [facility], [address] [place] [address], [id number], [place] tel:[phone] [facility] No Information 0 Meredith Pinzon. [facility], [address], [address], [place], [place], [id number], [place]. tel:[phone] Referring Provider: Amalia Sheth, [employer] [address], [address]. tel:[phone] Office/Outpa tient Visit,Est, Mod [facility], [address], [place], [place], [id number], [place] tel:[phone] [facility] Spinal stenosis, lumbar region with neurogenic claudication Sep-2 0 Meredith Pinzon. [facility], [address], [address], [facility] [place], [id number], [place]. tel:[phone] Referring Provider: Amalia Sheth, [address], [address]. tel:[phone] Office/Outpa tient Visit,New, Mod [facility], [address], [place], [place], [id number], [place] tel:[phone] [facility] No Information 0 No Information Referring Provider: Amalia Sheth, [address], [address]. tel:[phone] Office/Outpa tient Visit,Est, Mod [facility], [address], [place], [place], [id number], [place] tel:[phone] [facility] CervicalgiaOV ERWEIGHTCervi zena radiculopathy Non union of fx Dec- 5 Meredith Pinzon. [facility], [address], [address], [place], [id number], [place]. tel:[phone] Referring Provider: Michael Gunter, [address], [address]. tel:[phone] Office/Outpa tient Visit,Est, Low Z [facility], [address] [place] [place] [address], [address], [place] tel:[phone] [facility] No Information 4 Meredith Pinzon. [facility], [address], [facility] [address], [place], [id number], [place]. tel:[phone] Referring Provider: Michael Gunter, [facility] [address] [place], [address]. tel:[phone] Z [facility], [address] [place] [address], [address], [place] tel:[phone] [facility] No Information 3 Meredith Pinzon. [facility], [address], [address], [place], [place], [id number], [place]. tel:[phone] Referring Provider: Michael Gunter, [address], [address]. tel:[phone] Z [facility], [address] [place] [address], [address], [place] tel:[phone] [facility] No Information 3 Meredith Pinzon. [facility], [address], [place] [address], [place], [place], [id number], [place]. tel:[phone] Referring Provider: Michael Gunter, [address], [address]. tel:[phone] Z [facility], [address], [address], [place] tel:[phone] [facility] No Information 3 Meredith Pinzon. [facility], [address], [address], [id number], [place]. tel:[phone] Referring Provider: Michael Gunter, [address], [address]. tel:[phone] Office/Outpa tient Visit,[facility] [place] Z [facility], [address] [facility], [place], [address], [place] tel:[phone] [facility] Hypercholeste rolemiaGERDHy pertension, Unspecified 3 Meredith Pinzon. [facility], [address] [place], [address], [id number], [place]. tel:[phone] Referring Provider: Michael Gunter, [address], [address]. tel:[phone] Family History Family Member Type Diagnosis Age At Onset No Information Payers Payer name Insurance type Covered libertarian ID Fran crisostomo(s) Perry Winters 2021 [id number] Social History Type Description Quantity Date Captured Comments Alcohol Use Details Unknown Caffeine Use Details Unknown Tobacco Use Status No Information Smoking Status No Information Sex Male Chief Complaint And Reason For Visit No Information Reason For Referral Reason For Referral No Information Plan Of Treatment Date Type Action Status Appointment Simon Mosher BOOKED Future Order: Radiology Order Ce rvl 4-5 Views ([id number]), Ordered on: Ordered Future Order: Radiology Order F/ E Cervical (F/Ecervical), Ordered on: Ordered History Of Present Illness Encounter Date Complaint History Of Prese nt Illness No Information Functional Status Date Functional Assessmen t No Information Instructions Date Instruction Additional Infor tessie Weight Management [facility] Assessments Type Assessment Date No Information Patient Care Teams Name Effective Dates (start - stop) Status Members No Information
--- OUTSIDE RECORDS SUMMARY | 2024-02-28 13:14 | XMS_ITS | Clinical Summary ---
Author Organization [facility] Address [place], [place] [address] Care Team Providers Care Redeye Gunner Name Role Phone DomenicAmalia sherwood Maggi ORTIZ Primary Care Provider [phone] [facility] [place] Unavailable [phone] Allergies Active Allergy Reactions Criticality Noted Date Comments Penicillins Rash High 04/26/2013 Patient tolerated ceftriaxone 01/2019 , Cephalexin in 2018 and cefuroxime IV 04/2013. 08/17: per spouse- this was a childhood reaction where patient had swelling and remembers providers telling him a repeat reaction could be fatal. Medications Medication Sig Dispensed Refills Start Date End Date Status cholecalciferol, Vitamin D3, 2,000 unit tabletIndications:V itamin D deficiency Take 2,000 units by mouth once daily. 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 IF PAIN IS UNRELIEVED OR WORSENED 5 MINS AFTER 1ST DOSE, PROMPT MEDICAL ASSISTANCE IS NEEDED. MAY REPEAT EVERY 5 MINS UNTIL PAIN RELIEVED, MAX 3 DOSES 25 Tablet 4 04/18/2023 Active escitalopram oxalate (LEXAPRO) 20 mg tabletIndications:A nxiety,Depression, unspecified depression type Take 1 Tablet (20 mg) by mouth at bedtime. 90 Tablet 3 07/11/2023 Active buPROPion (WELLBUTRIN XL) 300 mg Extended-Release tabletIndications:D epression, unspecified depression type Take 1 Tablet (300 mg) by mouth once daily. Take in addition to your 150 mg tab. 90 Tablet 3 10/13/2023 Active buPROPion (WELLBUTRIN XL) 150 mg Extended-Release tabletIndications:D epression, unspecified depression type Take 1 Tablet (150 mg) by mouth every morning. Take in addition to the 300 mg tab. 90 Tablet 3 10/13/2023 Active eszopiclone (LUNESTA) 3 mg tabletIndications:I nsomnia, idiopathic Take 1 Tablet (3 mg) by mouth at bedtime. 30 Tablet 5 10/13/2023 Active Additional Information Patient taking differently:3 mg OralBEDTIME PRN, Sleep, Reported on 12/13/2023 carvediloL (COREG) 25 mg tabletIndications:H ypertensive emergency Take 1 Tablet (25 mg) by mouth two times daily. 180 Tablet 3 11/03/2023 Active busPIRone (BUSPAR) 10 mg tabletIndications:A nxiety TAKE ONE TABLET BY MOUTH TWICE A DAY 180 Tablet 1 11/23/2023 Active hydroCHLOROthiazide (HCTZ) 25 mg tabletIndications:H TN (hypertension) Take 1 Tablet (25 mg) by mouth once daily. 90 Tablet 3 11/28/2023 Active losartan (COZAAR) 100 mg tabletIndications:H ypertension Take 1 Tablet (100 mg) by mouth once daily. in the evening. 90 Tablet 3 11/28/2023 Active potassium chloride (KLOR-CON M20) 20 mEq extended-release tablet (part/cryst)Indicat ions:Hypokalemia Take 1 Tablet (20 mEq) by mouth once daily with a meal. 90 Tablet 11/28/2023 Active gabapentin (NEURONTIN) 300 mg capsuleIndications: Post concussion syndrome,Lumbar stenosis with neurogenic claudication,Stenos is of cervical spine with myelopathy (HC) Take 2 Capsules (600 mg) by mouth at bedtime. 180 Capsule 1 11/28/2023 Active atorvastatin (LIPITOR) 80 mg tabletIndications:H yperlipidemia, unspecified hyperlipidemia type Take 1 Tablet (80 mg) by mouth at bedtime. 90 Tablet 3 11/28/2023 Active omeprazole (PRILOSEC) 20 mg Delayed-Release capsule Take 20 mg by mouth at bedtime. Active acetaminophen (TYLENOL EXTRA STRGTH) 500 mg tabletIndications:R etained orthopedic hardware Take 2 Tablets (1,000 mg) by mouth every 6 hours if needed for Pain. Max acetaminophen dose: 4000mg in 24 hrs. 50 Tablet 12/14/2023 Active methocarbamoL (ROBAXIN) 750 mg tabletIndications:R etained orthopedic hardware Take 1 Tablet (750 mg) by mouth every 6 hours if needed for Muscle Spasm. 20 Tablet 12/14/2023 Active ondansetron (ZOFRAN ODT) 4 mg disintegrating tabletIndications:R etained orthopedic hardware Place 1 Tablet (4 mg) on the tongue every 8 hours if needed for Nausea/Vomiting. 10 Tablet 12/14/2023 Active oxyCODONE (ROXICODONE) 5 mg immediate release tabletIndications:R etained orthopedic hardware Take 1-2 Tablets (5-10 mg) by mouth every 6 hours if needed for Pain (First choice for severe pain.). 10 Tablet 12/14/2023 Active docusate (COLACE) 100 mg capsuleIndications: Retained orthopedic hardware Take 1 Capsule (100 mg) by mouth once daily if needed for Constipation. 20 Capsule 12/14/2023 Active aspirin (ECOTRIN) 81 mg enteric coated tabletIndications:A SCVD (arteriosclerotic cardiovascular disease) Take 1 Tablet (81 mg) by mouth once daily. 12/19/2023 Active CPAPIndications:BJORN (obstructive sleep apnea) CPAP machine for home use at pressure 14cmw, CPAP mask- mask of choice, fit to comfort one per 3 months 1 Each 11 01/18/2024 Active Active Problems Problem Noted Date Diagnosed Date Fusion of spine, cervical region 05/23/2023 Hypertensive emergency 10/02/2022 Dysphagia 08/03/2022 PNA (pneumonia) 08/03/2022 Neck pain 07/21/2022 Stenosis of cervical spine with myelopathy 05/19 Restless legs syndrome (RLS) 05/17/2022 Low serum vitamin D 09/02/2021 Overview: Serum level of 10.6 Started on cholecalciferol 4000 IU qd. Lumbar stenosis with neurogenic claudication SOBOE (shortness of breath on exertion) 04/23/20 20 Acute right-sided low back pain with right-sided sciatica 04/23/2020 Post concussion syndrome 09/12/2019 Hypertension 09/06/2019 Morbid obesity with BMI of 45.0-49.9, adult 08/26 Vertigo 09/06/2019 Head trauma 09/06/2019 Overview: Fell down stairs 07/2019. Hypokalemia 09/06/2019 BJORN 12/28/2006 AHI- 93 09/06/2019 Overview: Uses CPAP ASCVD (arteriosclerotic cardiovascular disease) 08/20/2019 Overview: 2007: coronary artery bypass graft 2015: stent Depression 06/21/2019 Anxiety 06/21/2019 Hyperlipidemia Hearing loss BPH (benign prostatic hyperplasia) Overview: Had laser procedure. Encounters Date Type Department Care Team Description 02/15/2024 Transcribe Orders [facility] [address] [place] [address] Michael Edouard MD 02/06/2024 1:45 PM CDT - 02/06/2024 11:59 PM CDT Hospital Encounter [facility] [address] [place] [address] Kristin Ernandez PA Lumbar radiculopathy 02/06/2024 Travel 02/03/2024 Transcribe Orders [facility] [address] [place] [address] Kristin Ernandez PA 01/18/2024 11:30 AM CDT Office Visit [facility] [address] [place] [address] Phil Alcazar MD Sleep Follow-up 01/18/2024 Travel 01/17/2024 Orders Only [facility] Scanner 1 scan: (1-Ord) AMANDEEP, COMPLIANCE REPORT, 01/17/2024 12/16/2023 9:10 AM CDT Office Visit [facility] [address] [place] [address] Amalia Sheth, Hospital F/U (underwent Instrumentation Removal - ANTERIOR C3-C5 on 12/13/2023 by Jeromy Arias MD; ) 12/15/2023 Travel 12/13/2023 7:39 AM CDT Anesthesia Event [facility] [address] [place] [address] Gisselle Mendoza MD Bisciglia, John Michael, CRNA 12/13/2023 7:30 AM CDT - 12/13/2023 12:00 PM CDT Surgery [facility] [address] [place] [address] Jeromy Harper MD Instrumentation Removal - ANTERIOR C3-C5 12/13/2023 5:48 AM CDT - 12/14/2023 11:30 AM CDT Hospital Encounter [facility] [address] [place] [address] Jeromy Harper MD Retained orthopedic hardware (Primary Dx); ASCVD (arteriosclerotic cardiovascular disease) Discharge Disposition: Home Self Care 12/12/2023 Travel 11/28/2023 3:40 PM AIR SAMPLING AND MONITORING Preop Visit [address] [phone] Amalia Sheth DO Pre-Op Exam 11/28/2023 Travel from Last 3 Months Immunizations Name Administration Dates Next Due COVID-19 vaccine (Pfizer-Bio NTech 30mcg/0.3mL) 12YO+ BIVALENT PF, MDV 09/16/2022 COVID-19 vaccine (Pfizer-Bio NTech 30mcg/0.3mL) PF, MDV 07/29/2021 DTaP 06/02/2006 Influenza A (H1N1), Inactivated 11/05/2009 Influenza A (H1N1), Inactiva radha (Age >=3 Years) 11/05/2009 Influenza Virus, Unspecified 06/07/2016, 08/19/2014,08/06/2013,06/28,06/26/2011,07/17/2010,07/10/2008 Influenza, High-dose Inactivated 05/27/2014,07/27 Influenza, IIV3 (Age 6-35 mos) 06/06/2016,2014,07/10/2008 Influenza, IIV3 (Age >=3 years) 06/17/20 21,06/10/2017,08/18/2014,06/28,07/01/2011,07/17/2010 Influenza, IIV4 06/10/2022, 0,06/15/2019,06/09 Influenza,CCIIV4 PRESERV FREE 06/21/2023 Pneumococcal Poly,23-Valent (Pneumovax) 08/24/2008 RSV, Bivalent Vaccine Recons tituted (Abrysvo 120MCG/0.5mL) 06/21/2023 Tdap 03/23/2014,06/02/2006 Zoster (Shingrix-RZV, recombinant) 04/19/2022, Family History Medical History Relation Name Comments Cancer Brother Heart Disease Father Heart failure Mother Cancer Sister Anesthesia Problem No Family History Relation Name Status Comments Brother Father Mother Sister Social History Tobacco Use Types Packs/Day Years Used Date Smoking Tobacco: Former Cigarettes 0 09/26/1979 - 09/26/2004 Passive Smoke Exposure: Past Smokeless Tobacco: Never Tobacco Cessation:Counseling Given: Not Answered Passive Exposure Comments:dad smoked in child naidu life Alcohol Use Standard Drinks/Week Comments Yes 3 (1 standard drink = 0.6 oz pur e alcohol) occasionally PHQ-2 Answer Date Recorded PHQ-2 TOTAL SCORE 3 10/13/2023 Social Connections Answer Date Recorded Frequency of Communication with Friends and Fami ly Not on file 09/16/2021 Financial Resource Strain Answer Date R ecorded Difficulty of Paying Living Expenses Not on file 09/16/2021 Difficulty of Paying Living Expenses Not on file 09/16/2021 Sex and Gender Information Value Date Recorded Sex Assigned at Not on file Gender Identity Not on file Sexual Orientation Not on file Obstetrics History Last Filed Vital Signs Vital Sign Reading Time Taken Comments Blood Pressure 127/76 01/18/2024 11:36 AM CDT Pulse 61 01/18/2024 11:36 AM CDT Temperature 36.8 ??C (98.2 ??F) 12/16/2023 9:18 AM CD T Respiratory Rate 18 12/16/2023 9:18 AM CDT Oxygen Saturation 96% 01/18/2024 11:36 AM CDT Inhaled Oxygen Concentration - - Weight 148.3 kg (327 lb) 01/18/2024 11:36 AM CDT Height 177.8 cm (5' 10) 01/18/2024 11:36 AM CDT Body Mass Index 46.92 01/18/2024 11:36 AM CDT Plan of Treatment Upcoming Encounters Date Type Department Care Team (Late st Contact Info) Description 02/28/2024 1:40 PM CDT Office Visit [facility] [address] [place] [address] Michael Edouard MD [address] [place] [address] Arrived 03/19/2024 1:20 PM CDT Office Visit [facility] [address] [place] [address] Amalia Sheth DO [address] [place] [address] Health Maintenance Due Date Last Done Comments HIV for age 15-65 1975 COVID-19 vaccine series (2022- season) 2023 09/16/2022, 07/29/2021, 02/09/2021, Additional history exists Tetanus booster 03/23/2024 03/23/2014, 06/02/2006 Influenza for age 50-64 05/27/2024 06/21/20 23, 06/10/2022, 06/17/2021, Additional history exists Depression screening for age 12+ 10/13/2024 10/13/2023, 07/07/2023, 07/07/2023, Additional history exists BMI (ht and wt on same day) for age 18+ 01/17/2025 01/18/2024, 12/16/2023, 11/28/2023, Additional history exists Lipids for age 45-75 09/01/2026 09/01/2021, 04/23/20 20 Colonoscopy through age 75 06/27/2027 06/27/2017, Pneumococcal series for age 6-64 Aged Out 08/24/2008 No longer eligible based on patient's age to complete this topic Tdap Completed 03/23/2014, 06/02/2006 Hepatitis C screening for age 18-79 Completed 07/16/2020 Zoster (shingles) series for age 50+ Completed 04/19/2022, 01/18/2022 Medical Devices Implanted Type Area Printed Circuit Photographer Device Identifier Shelf Expiration Date Model / Serial / Lot Screw Canclls [id number] Selftapping - [id number] Implanted:Qty: 1 on 05/18/2013 by Jeromy Harper MD at [facility] Spine Implants N/A: Cervical Vertebrae J And J Depuy Spine 487.056# / / Screw Cerv [id number] Lock 497.78 Synthes - [id number] Implanted:Qty: 4 on 05/18/2013 by Jeromy Harper MD at [facility] Spine Implants N/A: Cervical Vertebrae J And J Depuy Spine 497.78# / / Screw Cerv Ant [id number] Cslp Canclls Slf Tppng Expansion He - [id number] Implanted:Qty: 2 on 06/04/2022 by Jeromy Harper MD at [facility] Spine Implants N/A: Spine J And J Depuy Spine 487.056 / / Spacer Cage [id number] 6deg Bengal Stackable - [id number] Implanted:Qty: 1 on 05/18/2013 by Jeromy Harper MD at [facility] N/A: Cervical Vertebrae J And J Depuy Spine [id number]# / / Screw Expansionhead [id number] Cortex Self Tapping - [id number] Implanted:Qty: 3 on 05/18/2013 by Jeromy Harper MD at [facility] N/A: Cervical Vertebrae J And J Depuy Spine 487.044# / / Plate Cerv 37mm - [id number] Implanted:Qty: 1 on 05/18/2013 by Jeromy Hraper MD at [facility] N/A: Cervical Vertebrae J And J Depuy Spine 450.164# / / Spacer Cage Lmbr [id number] Synmesh - [id number] Implanted:Qty: 1 on 06/04/2022 by Jeromy Harper MD at [facility] N/A: Spine Depuy Synthes [employer] 495.615 / / Screw Cerv Ant 4x16mm Cslp Dean Slf Tpping Expansion Hea - [id number] Implanted:Qty: 2 on 06/04/2022 by Jeromy Harper MD at [facility] N/A: Spine J And J Depuy Spine 487.046 / / Plate Cerv 2lvl 37mm Cslp Variable Titnm Implanted:Qty: 1 on 06/04/2022 by Jeromy Harper MD at [facility] N/A: Spine 450.164 / / Description:PLATE CERV 2LVL 37MM CSLP VARIABLE TITNM Daphney Ti Cvd 50mm Implanted:Qty: 2 on 07/23/2022 by Jeromy Harper MD at [facility] N/A: Spine [id number] 3 / / Description:DAPHNEY TI CVD 50MM [id number] one 1-4mm 30cc Medtronic Chips Canclls Freeze Dried Implanted:Qty: 1 on 07/23/2022 by Jeromy Harper MD at [facility] Explanted:at [facility] (Quantity not on file) N/A: Spine Medtronic Spine/Ortho 06/03/2026 [id number] / [id number] / Screw Cerv Post 3.5x12mm Synapse Va Canncls Titnm - [id number] Implanted:Qty: 8 on 07/23/2022 by Jeromy Harper MD at [facility] N/A: Spine J And J Depuy Spine 04.614.0 12 / / Set Screw Cerv Synapse - [id number] Implanted:Qty: 8 on 07/23/2022 by Jeromy Harper MD at [facility] N/A: Spine J And J Depuy Spine 04.614.5 08 / / Procedures Procedure Name Priority Date/Time Associated Diagnosis Comments AMB EPIDURAL STEROID INJECTION Routine 02/28/2024 7:58 AM CDT Lumbar radiculopathy MR SPINE LUMBAR WO MEETA 02/06/2024 2:19 PM CDT Lumbar radiculopathy SCAN-DIAGNOSTIC REPORT 01/17/2024 12:00 AM CDT XR SPINE CERVICAL 2 VIEWS Routine 12/14/2023 9:58 AM CDT CREATININE Early AM 12/14/2023 7:45 AM CDT POTASSIUM Early AM 12/14/2023 7:45 AM CDT XR C-ARM EQUAL OR GREATER 4 HR Routine 12/13/2023 1:00 PM CDT XR SPINE 1 VIEW PORTABLE Routine 12/13/2023 12:59 PM CDT COMPREHENSIVE BLOOD GAS ARTERIAL Timed 12/13/2023 12:45 PM CDT ENDOTRACHEAL TUBE Routine 12/13/2023 8:20 AM CDT ENDOTRACHEAL TUBE Routine 12/13/2023 8:20 AM CDT REMOVAL HARDWARE CERVICAL IMPLANTS Elective 12/13/2023 7:27 AM CDT Pseudoarthrosis, Loss of fixation dysphagia Case Notes IOM Fiberoptic IntubationC_Arm 4085 / ether Jerman Patel tongsFibular Strut availableCSLPROI: CSLPMR SCAN-CARDIAC STRIP 12/13/2023 12:00 AM CDT CBC WITH AUTO DIFFERENTIAL Routine 11/28/2023 4:30 PM AIR SAMPLING AND MONITORING Preoperative general physical examination ASCVD (arteriosclerotic cardiovascular disease) Hypertension Hypokalemia COMP METABOLIC PANEL Routine 11/28/2023 4:30 PM AIR SAMPLING AND MONITORING Preoperative general physical examination ASCVD (arteriosclerotic cardiovascular disease) Hypertension Hypokalemia CBC WITH AUTO DIFFERENTIAL Routine 11/28/2023 4:30 PM AIR SAMPLING AND MONITORING Preoperative general physical examination ASCVD (arteriosclerotic cardiovascular disease) Hypertension Hypokalemia LIPID PANEL Routine 09/01/2021 3:40 PM AIR SAMPLING AND MONITORING ASCVD (arteriosclerotic cardiovascular disease) ANTI HCV Routine 07/16/2020 10:35 AM CDT Need for hepatitis C screening test COLONOSCOPY 06/27/2017 11:00 AM CDT from Last 3 Months or Most Recently Relevant to Health Maintenance Results * MR SPINE LUMBAR WO (02/06/2024 2:19 PM CDT) Anatomical Region Laterality Modality Spine, LUMBAR SPINE Magnetic Res onance 02/06/2024 3:08 PM CDT Narrative 02/06/2024 3:08 PM CDT For Patients: ??As a result of the Century Cures Act, medical imaging exams and procedure reports are released immediately into your electronic medical record. ??You may view this report before your referring provider. ??If you have questions, please contact your health care provider. Indication: Lumbar radiculopathy. Technique: Noncontrast MRI scan of the lumbar spine. Comparison: MRI scan of the lumbar spine 01/07/2022 Findings: General: The conus terminates at L1. There is a mild scoliosis of the lumbar spine. Degenerative disc disease and facet arthrosis is present throughout the lumbar spine. The pedicles appear congenitally shortened. No acute fracture or suspicious bone lesion. Laminectomy defects at L4-L5 appear unchanged. Disc levels: L1-L2: Mild disc space height loss. Posterior broad-based disc protrusion, bilateral facet hypertrophy and ligamentum flavum thickening. Moderate spinal stenosis. Bilateral lateral recess stenosis. Mild right and moderate left neural foraminal stenosis. L2-L3: Decreased disc signal. Posterior broad-based disc protrusion, asymmetric to the left. Disc material abuts the exited left extra-foraminal L2 nerve root (image 12, series 9). Bilateral facet hypertrophy and ligamentum flavum thickening. Moderate spinal stenosis. Bilateral lateral recess stenosis. Moderate left and right neural foraminal narrowing. L3-L4: Posterior broad-based disc protrusion, asymmetric to the right. Bilateral facet hypertrophy and ligamentum flavum thickening, worse on the right. Severe spinal stenosis. Bilateral lateral recess stenosis. Severe right and moderate left neural foraminal stenosis. L4-L5: Severe disc space height loss. Postsurgical changes with posterior decompression, unchanged. No new disc herniation or spinal stenosis. Bilateral facet hypertrophy. Mild bilateral neural foraminal narrowing. L5-S1:No disc herniation. Bilateral facet hypertrophy. Mild spinal stenosis and moderate bilateral foraminal narrowing, worse on the left. Impression: 1. Degenerative spondylosis of the lumbar spine with varying degrees of stenosis as detailed above. 2. Severe spinal stenosis at L3-L4. 3. Previous posterior decompression at L4-L5, unchanged. Dictated by Thom Bell MD @ 02/06/2024 3:08:53 PM (Electronically Signed) Procedure Note Thom Bell MD - 02/06/2024 For Patients: As a result of the Cures Act, medical imagingexams and procedure reports are released immediately into your electronicmedical record. You may view this report before your referring provider.If you have questions, please contact your health care provider. Indication: Lumbar radiculopathy. Technique: Noncontrast MRI scan of the lumbar spine. Comparison: MRI scan of the lumbar spine 01/07/2022 Findings: General: The conus terminates at L1. There is a mild scoliosis of thelumbar spine. Degenerative disc disease and facet arthrosis is presentthroughout the lumbar spine. The pedicles appear congenitally shortened.No acute fracture or suspicious bone lesion. Laminectomy defects at L4-Y6jimbnf unchanged. Disc levels: L1-L2: Mild disc space height loss. Posterior broad-based disc protrusion,bilateral facet hypertrophy and ligamentum flavum thickening. Moderatespinal stenosis. Bilateral lateral recess stenosis. Mild right andmoderate left neural foraminal stenosis. L2-L3: Decreased disc signal. Posterior broad-based disc protrusion,asymmetric to the left. Disc material abuts the exited leftextra-foraminal L2 nerve root (image 12, series 9). Bilateral facethypertrophy and ligamentum flavum thickening. Moderate spinal stenosis.Bilateral lateral recess stenosis. Moderate left and right neuralforaminal narrowing. L3-L4: Posterior broad-based disc protrusion, asymmetric to the right.Bilateral facet hypertrophy and ligamentum flavum thickening, worse on theright. Severe spinal stenosis. Bilateral lateral recess stenosis. Severeright and moderate left neural foraminal stenosis. L4-L5: Severe disc space height loss. Postsurgical changes with posteriordecompression, unchanged. No new disc herniation or spinal stenosis.Bilateral facet hypertrophy. Mild bilateral neural foraminal narrowing. L5-S1:No disc herniation. Bilateral facet hypertrophy. Mild spinalstenosis and moderate bilateral foraminal narrowing, worse on the left. Impression: 1. Degenerative spondylosis of the lumbar spine with varying degrees ofstenosis as detailed above. 2. Severe spinal stenosis at L3-L4. 3. Previous posterior decompression at L4-L5, unchanged. Dictated by Thom Bell MD @ 02/06/2024 3:08:53 PM (Electronically Signed) Kristin BURTON MR * SCAN-DIAGNOSTIC REPORT (01/17/2024 12:00 AM CDT) Scanner OTHER * XR SPINE CERVICAL 2 VIEWS (12/14/2023 9:58 AM CDT) Anatomical Region Laterality Modality CERVICAL SPINE Digital Radiogra phy 12/15/2023 11:2 5 AM CDT Narrative 12/15/2023 11:25 AM CDT For Patients: ??As a result of the Cures Act, medical imaging exams and procedure reports are released immediately into your electronic medical record. ??You may view this report before your referring provider. ??If you have questions, please contact your health care provider. Indication: Postoperative evaluation. Technique: Lateral, AP and swimmer`s view of the cervical spine Comparison: 12/13/2023 and 11/01/2023 Findings: Postoperative changes of C4 corpectomy with anterior plate and screw fixation spanning C3-C5 levels. Interbody cage noted at of C3-C5 levels. Explantation of the C3-C5 anterior plate and screw hardware. Posterior instrumented fusion hardware noted at C3-C6 levels. Anterior plate and screw fixation at C5-C7 levels. Moderate widening of the prevertebral space likely due to postoperative edema. Sternotomy wires noted. Impression: 1. Explantation of the C3-C5 anterior plate and screw hardware. Chronic C4 corpectomy with posterior instrumented fusion at C3-C6 levels and anterior fusion at C5-C7 levels. Interbody cage spanning the C3-C5 levels. 2. Moderate widening of the prevertebral space likely due to postoperative edema. 3. Ankylosis of the C2-3 vertebral bodies. Dictated by Melchor Edgar MD @ Dec 15 2023 11:25AM (Electronically Signed) Neuroradiologist [email or web address] [email or web address] Procedure Note Melchor Edgar MD - 12/15/2023 For Patients: As a result of the Cures Act, medical imagingexams and procedure reports are released immediately into your electronicmedical record. You may view this report before your referring provider.If you have questions, please contact your health care provider. Indication: Postoperative evaluation. Technique: Lateral, AP and swimmer`s view of the cervical spine Comparison: 12/13/2023 and 11/01/2023 Findings: Postoperative changes of C4 corpectomy with anterior plate and screwfixation spanning C3-C5 levels. Interbody cage noted at of C3-C5 levels.Explantation of the C3-C5 anterior plate and screw hardware. Posteriorinstrumented fusion hardware noted at C3-C6 levels. Anterior plate andscrew fixation at C5-C7 levels. Moderate widening of the prevertebralspace likely due to postoperative edema. Sternotomy wires noted. Impression: 1. Explantation of the C3-C5 anterior plate and screw hardware. Chronic [id number] with posterior instrumented fusion at C3-C6 levels and anteriorfusion at C5-C7 levels. Interbody cage spanning the C3-C5 levels. 2. Moderate widening of the prevertebral space likely due to postoperativeedema. 3. Ankylosis of the C2-3 vertebral bodies. Dictated by Melchor Edgar MD @ Dec 15 2023 11:25AM (Electronically Signed) Neuroradiologist [email or web address] [email or web address] * POTASSIUM (12/14/2023 7:45 AM CDT) POTASSIUM 3.6 3.5 - 5.1 mmol/L 12/14/2023 8:57 AM CDT [facility] Blood BLOOD SPECIMEN / Unknown Venipuncture / Unknown 12/14/2023 7:45 AM CDT 12/14/2023 8:14 AM CDT Melchor Baltazar MD CHEMISTRY Performing Organization Address [facility] [facility] de Phone Number [facility] [address] [place] [address], * (ABNORMAL) CREATININE (12/14/2023 7:45 AM CDT) eGFR 83(L) >90 mL/min/1.7 3m2 12/14/2023 8:57 AM CDT [facility] Comment:As of 2021, eG FR is calculated by the CKD-EPI creatinine equation without race adjustment. ??eGFR can be influenced by muscle mass, exercise, and diet. ??The reported eGFR is an estimation only and is only applicable if the renal function is stable. CREATININE 1.02 0.70 - 1.20 mg/dL 12/14/2023 8:57 AM CDT [facility] Blood BLOOD SPECIMEN / Unknown Venipuncture / Unknown 12/14/2023 7:45 AM CDT 12/14/2023 8:14 AM CDT Melchor Baltazar MD CHEMISTRY Performing Organization Address [facility] de Phone Number [facility] [address] [place] [address], * XR C-ARM EQUAL OR GREATER 4 HR (12/13/2023 1:00 PM CDT) Anatomical Region Laterality Modality Other Narrative 12/13/2023 8:02 AM CDT 12 seconds fluoroscopy time was provided. ??See operative/procedure report for further information. Jeromy Harper MD FLUOROSCOPY * XR SPINE 1 VIEW PORTABLE (12/13/2023 12:59 PM CDT) Anatomical Region Laterality Modality Spine, CERVICAL SPINE, THORACIC SPINE, LUMBAR SP INE Digital Radiography 12/15/2023 10:5 1 AM CDT Narrative 12/15/2023 10:51 AM CDT For Patients: ??As a result of the Century Cures Act, medical imaging exams and procedure reports are released immediately into your electronic medical record. ??You may view this report before your referring provider. ??If you have questions, please contact your health care provider. INDICATION: Spinal localization COMPARISON: 07/23/2022. TECHNIQUE: Intraoperative fluoroscopy. FINDINGS: Intraoperative fluoroscopy of the cervical spine performed for localization purposes. Spot films 2. Fluoro time 12 seconds. Dictated by Kelton Cummings MD @ Dec 15 2023 10:51AM (Electronically Signed) Neuroradiologist [email or web address] - Private [email or web address] Procedure Note Kelton Cummings MD, PhD - 12/15/2023 For Patients: As a result of the Cures Act, medical imagingexams and procedure reports are released immediately into your electronicmedical record. You may view this report before your referring provider.If you have questions, please contact your health care provider. INDICATION: Spinal localization COMPARISON: 07/23/2022. TECHNIQUE: Intraoperative fluoroscopy. FINDINGS: Intraoperative fluoroscopy of the cervical spine performed forlocalization purposes. Spot films 2. Fluoro time 12 seconds. Dictated by Kelton Cummings MD @ Dec 15 2023 10:51AM (Electronically Signed) Neuroradiologist [email or web address] Jeromy Harper MD GENERAL IMAGING * (ABNORMAL) COMPREHENSIVE BLOOD GAS ARTERIAL (12/13/2023 12:45 PM CDT) PH, ARTERIAL 7.42 7.35 - 7.45 12/13/2023 12:45 PM CDT [facility] PCO2, ARTERIAL 43 35 - 48 mmHg 12/13/2023 12:45 PM CDT [facility] PO2, ARTERIAL 96 83 - 108 mmHg 12/13/2023 12:45 PM CDT [facility] HCO3, ARTERIAL 28 21 - 28 mmol/L 12/13/2023 12:45 PM CDT [facility] BASE EXCESS, ARTERIAL 3.0 -2.0 - 3.0 12/13/2023 12:45 PM CDT [facility] O2 SATURATION, ARTERIAL 100(H) 94 - 98 % 12/13/2023 12:45 PM CDT [facility] PATIENT TEMPERATURE 37.0 Degrees C 12/13/2023 12:45 PM CDT [facility] COLLECTION SITE ARTERIAL LINE 12/13/2023 12:45 PM CDT [facility] HEMOGLOBIN,BLOO D GAS 12.9(L) 13.5 - 17.5 g/dL 12/13/2023 12:45 PM CDT [facility] SODIUM 134(L) 136 - 145 mmol/L 12/13/2023 12:45 PM CDT [facility] POTASSIUM 3.6 3.5 - 5.1 mmol/L 12/13/2023 12:45 PM CDT [facility] CHLORIDE 103 98 - 107 mmol/L 12/13/2023 12:45 PM CDT [facility] Blood BLOOD SPECIMEN / Unknown 12/13/2023 12:45 PM CDT 12/13/2023 12:46 PM CDT Jeromy Harper MD CHEMISTRY [facility] [address] [place] [address], * HCHG INSTRUMENT DISP PR10, HCHG STYLET PR1 (12/13/2023 8:20 AM CDT) Narrative Tommy Stanton CRNA - 12/13/2023 8:20 AM CDT Tommy Stanton CRNA ? 12/13/2023 ??8:24 AM Procedure: ETT Patient location during procedure: OR ETT Properties Mask Ventilation: oral airway and easy (2-person) Final Technique: video laryngoscopy Location: oral Cuffed: yes Tube Size: 8.0 mm Stylet: yes Laryngoscope Blade: Glidescope Blade Size: 3 Cormack-Lehane Grade View: 1 Insertion Attempts: 2 Placement Verification: end tidal CO2 and symmetrical chest wall movement Assessment: pharynx clear, atraumatic and dentition unchanged Secured at: 22 Measured From: lips Bite Block: soft and molar Difficulty: 1 (somewhat) Difficulty Comment: large tongue, excess tissue and limited neck mobility Notes: SRNA attempted 1x, unsuccessful Intubated by MD Mendoza Gisselle Mendoza MD ANESTHESIA PX NOT E ORDERABLES * SCAN-CARDIAC STRIP (12/13/2023 12:00 AM CDT) Narrative 12/13/2023 12:00 AM CDT Ordered by an unspecified provider. Other Clinical Staff OTHER * CBC WITH AUTO DIFFERENTIAL (11/28/2023 4:30 PM [facility]) WHITE BLOOD COUNT 8.7 4.5 - 11.0 thou/cu mm 11/28/2023 4:43 PM [facility] RED BLOOD COUNT 4.73 4.30 - 5.90 mil/cu mm 11/28/2023 4:43 PM [facility] HEMOGLOBIN 14.2 13.5 - 17.5 g/dL 11/28/2023 4:43 PM [facility] HEMATOCRIT 43.3 37.0 - 53.0 % 11/28/2023 4:43 PM [facility] MCV 92 80 - 100 fL 11/28/2023 4:43 PM [facility] MCH 30.0 26.0 - 34.0 pg 11/28/2023 4:43 PM [facility] MCHC 32.8 32.0 - 36.0 g/dL 11/28/2023 4:43 PM [facility] RDW 14.1 11.5 - 15.5 % 11/28/2023 4:43 PM [facility] PLATELET COUNT 234 140 - 440 thou/cu mm 11/28/2023 4:43 PM [facility] MPV 9.3 6.5 - 11.0 fL 11/28/2023 4:43 PM [facility] % NEUT 70.8 % 11/28/2023 4:43 PM [facility] % LYMPH 21.4 % 11/28/2023 4:43 PM [facility] % MONO 6.2 % 11/28/2023 4:43 PM [facility] % EOS 1.3 % 11/28/2023 4:43 PM [facility] % BASO 0.3 % 11/28/2023 4:43 PM [facility] ABSOLUTE NEUTROPHILS 6.1 1.7 - 7.0 thou/cu mm 11/28/2023 4:43 PM [facility] ABSOLUTE LYMPHOCYTES 1.9 0.9 - 2.9 thou/cu mm 11/28/2023 4:43 PM [facility] ABSOLUTE MONOCYTES 0.5 <0.9 thou/cu mm 11/28/2023 4:43 PM [facility] ABSOLUTE EOSINOPHILS 0.1 <0.5 thou/cu mm 11/28/2023 4:43 PM [facility] ABSOLUTE BASOPHILS 0.0 <0.3 thou/cu mm 11/28/2023 4:43 PM [facility] Blood BLOOD SPECIMEN / Unknown Venipuncture / Unknown 11/28/2023 4:30 PM [facility] 11/28/2023 4:31 PM [facility] Amalia Sheth DO HEMATOLOGY [facility] [address] [id number] * (ABNORMAL) COMP METABOLIC PANEL (11/28/2023 4:30 PM [employer]) SODIUM 144 136 - 145 mmol/L 11/28/2023 5:06 PM [facility] POTASSIUM 3.7 3.5 - 5.1 mmol/L 11/28/2023 5:06 PM [facility] CHLORIDE 105 98 - 107 mmol/L 11/28/2023 5:06 PM [facility] CO2,TOTAL 29 22 - 29 mmol/L 11/28/2023 5:06 PM [facility] ANION GAP 10 5 - 18 11/28/2023 5:06 PM [facility] GLUCOSE 114(H) 70 - 99 mg/dL 11/28/2023 5:06 PM [facility] CALCIUM 9.2 8.8 - 10.2 mg/dL 11/28/2023 5:06 PM [facility] BUN 13 8 - 23 mg/dL 11/28/2023 5:06 PM [facility] CREATININE 0.93 0.70 - 1.20 mg/dL 11/28/2023 5:06 PM [facility] BUN/CREAT RATIO 14 10 - 20 5:06 PM [facility] eGFR >90 >90 mL/min/1.7 3m2 11/28/2023 5:06 PM [facility] Comment:As of 2021, eG FR is calculated by the CKD-EPI creatinine equation without race adjustment. ??eGFR can be influenced by muscle mass, exercise, and diet. ??The reported eGFR is an estimation only and is only applicable if the renal function is stable. ALBUMIN 3.9(L) 4.0 - 4.9 g/dL 11/28/2023 5:06 PM [facility] PROTEIN,TOTAL 6.8 6.0 - 8.0 g/dL 11/28/2023 5:06 PM [facility] BILIRUBIN,TOTAL 0.5 0.0 - 1.2 mg/dL 11/28/2023 5:06 PM [facility] ALK PHOSPHATASE 144(H) 40 - 129 IU/L 11/28/2023 5:06 PM [facility] ALT (SGPT) 14 10 - 50 IU/L 11/28/2023 5:06 PM [facility] AST (SGOT) 14 10 - 50 IU/L 11/28/2023 5:06 PM [facility] Blood BLOOD SPECIMEN / Unknown Venipuncture / Unknown 11/28/2023 4:30 PM [facility] [employer] [facility] 11/28/2023 4:31 PM [employer] Amalia Sheth DO CHEMISTRY [facility] [address] [place] [address] * (ABNORMAL) LIPID PANEL (09/01/2021 3:40 PM [employer]) CHOLESTEROL,TOTAL 146 100 - 199 mg/dL 09/01/2021 5:13 PM [employer] [facility] TRIGLYCERIDES 122 <150 mg/dL 09/01/2021 5:13 PM [employer] [facility] HDL CHOLESTEROL 31(L) >40 mg/dL 5:13 PM [employer] [facility] NON-HDL CHOLESTEROL 115 <145 mg/dl 09/01/2021 5:13 PM [employer] [facility] CHOL/HDL RATIO 4.71(H) <4.50 09/01/2021 5:13 PM [employer] LDL CHOLESTEROL 91 <=130 mg/dL 09/01/2021 5:13 PM [employer] [facility] VLDL CHOLESTEROL 24 <=30 mg/dL 09/01/2021 5:13 PM [employer] [facility] PROVIDER ORDERED STATUS RANDOM 09/01/2021 5:13 PM [employer] [facility] Blood BLOOD SPECIMEN / Unknown Venipuncture / Unknown 09/01/2021 3:40 PM [employer] 09/01/2021 3:46 PM [employer] Siri Abel NP CHEMIS TRY [facility] [address] [place] [address] * ANTI HCV (07/16/2020 10:35 AM CDT) HEPATITIS C ANTIBODY Non-React vinnie Non-React vinnie 07/16/2020 4:48 PM CDT [facility] Comment:Antibodies to HCV no t detected; does not exclude the possibility of exposure to HCV. Blood BLOOD SPECIMEN / Unknown Venipuncture / Unknown 07/16/2020 10:35 AM CDT 07/16/2020 10:36 AM CDT Amalia Sheth DO SEND OUTS [facility] [address] [place] [address], [place] * COLONOSCOPY (06/27/2017 11:00 AM CDT) 06/27/2017 11:0 0 AM CDT Narrative Transcriptions Desmond Burns MD - 06/27/2017 11:37 AM CDT Patient Name: Simon Mosher Procedure Date: 06/27/2017 Gender: Male Date of : 1960 Admit Type: Ambulatory Procedure: Colonoscopy Proceduralist: Desmond Burns [facility] Referring MD: Michael Bosch MD Indications/Pre-Op Diagnosis: Surveillance: Piecemeal removal of large sessile adenoma last colonoscopy (< 3 yrs) Medications: Propofol per Anesthesia Procedure Description: The procedure, indications, potential complications, (bleeding, perforation, infection, adverse medication reaction, missed lesionsor polyps) and alternatives available were explained to the patient, who appeared to understand and indicated this. Opportunity for questionswas provided and informed consent obtained. The colonoscope was passed through the anus and advanced to thececum, identified by appendiceal orifice and ileocecal valve. Thecolonoscopy was performed without difficulty. The patient tolerated the procedure well. The quality of the bowel preparation was good. Complications: No immediate complications. Estimated blood loss: Minimal. Estimated Blood Loss & Specimen: Specimen collected: Yes and sent to Laboratory Findings: A 2 mm polyp was found in the ascending colon. The polyp was sessile. The polyp was removed with a piecemeal technique using a cold snare. Resection and retrieval were complete. Multiple diverticula were found in the sigmoid colon. The exam was otherwise without abnormality on direct and retroflexion views. Impressions/Post-Op Diagnosis: - One 2 mm polyp in the ascending colon, removed piecemeal using acold snare. Resected and retrieved. - Diverticulosis in the sigmoid colon. - The examination was otherwise normal on direct and retroflexionviews. Recommendation: - Repeat colonoscopy in 5 years for surveillance. Moderate Sedation: All monitoring and sedation per anesthesia. Desmond Burns, 06/27/2017 11:37:14 AM This report has been signed electronically. Note Initiated On: 06/27/2017 11:00 AM Desmond Burns MD PROCEDURE ORD from Last 3 Months or Most Recently Relevant to Health Maintenance Advance Directives * Full Code (Latest Code Status on File) Date Activated Date Inactivated Comments 12/13/2023 4:49 PM 12/14/2023 1:35 PM Question Answer Comments Code Status Discussion: Reviewed Preferences * Full Code Date Activated Date Inactivated Comments 08/02/2022 10:31 PM 08/08/2022 4:14 PM Question Answer Comments Code Status Discussion: Reviewed Preferences * Full Code Date Activated Date Inactivated Comments 07/21/2022 5:57 PM 07/26/2022 5:36 PM Question Answer Comments Code Status Discussion: Reviewed Preferences * Full Code Date Activated Date Inactivated Comments 06/04/2022 4:55 PM 06/06/2022 6:36 PM Question Answer Comments Code Status Discussion: Reviewed Preferences * Full Code Date Activated Date Inactivated Comments 07/18/2020 7:06 PM 07/20/2020 3:38 PM Question Answer Comments Code Status Discussion: Not DiscussedPer Existin g Order Care Teams [employer] Relationship Specialty Start Date End Date Amalia Sheth DO [address] [place] [address] PCP - General Internal Medicine 06/07/19 [address] [address] 08/08/22
== END 2024-02-28 13:07 | disposition home or self-care (01) ==
LOC: INJ CL 13:10
PROVIDERS: PCP Internal Medicine; Visit Provider Family Medicine
DX: M54.16 Radiculopathy, lumbar region (principal); M51.36 Other intervertebral disc degeneration, lumbar region
CPT/HCPCS: 64483; J1100; Q9966

== ENCOUNTER 2024-03-27 10:48 | Outpatient (CLI) | payer MEDICAID, SELFPAY ==
--- OUTSIDE RECORDS SUMMARY | 2024-03-27 10:51 | XMS_ITS | Clinical Summary ---
Author Organization [facility] Address [place], [place] [address] Care Team Providers Care Vp Packaging Name Role Phone DomenicAmalia sherwood Maggi ORTIZ Primary Care Provider [phone] [facility], [place] Unavailable [phone] Allergies Active Allergy Reactions Criticality Noted Date [...] 2,000 units by mouth once daily. 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 90 Tablet 3 3 Active buPROPion (WELLBUTRIN XL) 300 mg Extended-Release tabletIndications:D epression, unspecified depression type Take 1 Tablet (300 mg) by mouth once daily. Take in addition to your 150 mg tab. 90 Tablet 3 4 Active buPROPion (WELLBUTRIN XL) 150 mg Extended-Release tabletIndications:D epression, unspecified depression type Take 1 Tablet (150 mg) by mouth every morning. Take in addition to the 300 mg tab. 90 Tablet 3 4 Active eszopiclone (LUNESTA) 3 mg tabletIndications:I nsomnia, idiopathic Take 1 Tablet (3 mg) by mouth at bedtime. 30 Tablet 5 4 Active Additional Information Patient taking differently:3 mg OralBEDTIME PRN, Sleep, Reported on 12/13/2023 carvediloL (COREG) 25 mg tabletIndications:H ypertensive emergency Take 1 Tablet (25 mg) by mouth two times daily. 180 Tablet 3 4 Active busPIRone (BUSPAR) 10 mg tabletIndications:A nxiety TAKE ONE TABLET BY MOUTH TWICE A DAY 180 Tablet 1 4 Active hydroCHLOROthiazide (HCTZ) 25 mg tabletIndications:H TN (hypertension) Take 1 Tablet (25 mg) by mouth once daily. 90 Tablet 3 4 Active losartan (COZAAR) 100 mg tabletIndications:H ypertension Take 1 Tablet (100 mg) by mouth once daily. in the evening. 90 Tablet 3 4 Active potassium chloride (KLOR-CON M20) 20 mEq extended-release tablet (part/cryst)Indicat ions:Hypokalemia Take 1 Tablet (20 mEq) by mouth once daily with a meal. 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 180 Capsule 1 4 Active atorvastatin (LIPITOR) 80 mg tabletIndications:H yperlipidemia, unspecified hyperlipidemia type Take 1 Tablet (80 mg) by mouth at bedtime. 90 Tablet 3 4 Active omeprazole (PRILOSEC) 20 mg Delayed-Release capsule Take 20 mg by mouth at bedtime. Active acetaminophen (TYLENOL EXTRA STRGTH) 500 mg tabletIndications:R etained orthopedic hardware Take 2 Tablets (1,000 mg) by mouth every 6 hours if needed for Pain. Max acetaminophen dose: 4000mg in 24 hrs. 50 Tablet 4 Active ondansetron (ZOFRAN ODT) 4 mg disintegrating tabletIndications:R etained orthopedic hardware Place 1 Tablet (4 mg) on the tongue every 8 hours if needed for Nausea/Vomiting. 10 Tablet 4 Active oxyCODONE (ROXICODONE) 5 mg immediate release tabletIndications:R etained orthopedic hardware Take 1-2 Tablets (5-10 mg) by mouth every 6 hours if needed for Pain (First choice for severe pain.). 10 Tablet 4 Active docusate (COLACE) 100 mg capsuleIndications: Retained orthopedic hardware Take 1 Capsule (100 mg) by mouth once daily if needed for Constipation. 20 Capsule 4 Active aspirin (ECOTRIN) 81 mg enteric coated tabletIndications:A SCVD (arteriosclerotic cardiovascular disease) Take 1 Tablet (81 mg) by mouth once daily. 4 Active CPAPIndications:BJORN (obstructive sleep apnea) CPAP machine for home use at pressure 14cmw, CPAP mask- mask of choice, fit to comfort one per 3 months 1 Each 4 Active methocarbamoL (ROBAXIN) 750 mg tabletIndications:R etained orthopedic hardware,Lumbar stenosis with neurogenic claudication Take 1 Tablet (750 mg) by mouth every 6 hours if needed for Muscle Spasm. 20 Tablet 4 Active methocarbamoL (ROBAXIN) 750 mg tabletIndications:R etained orthopedic hardware Take 1 Tablet (750 mg) by mouth every 6 hours if needed for Muscle Spasm. 20 Tablet 4 03/19/20 Discontinu ed(Reorder (E-cancel not sent)) Active Problems Problem Noted Date Diagnosed Date Chronic GERD 03/19/2024 Fusion of spine, cervical region 05/23/2023 Hypertensive [...] Encounters Date Type Department Care Team Description 03/19/2024 1:20 PM CDT Office Visit [address] [phone] Amalia Sheth, DO Medication Management 03/19/2024 Travel 03/16/2024 Transcribe Orders [facility] [address] [place] [address] Michael Edouard MD 03/05/2024 Orders Only [facility] [place] [facility] [place] [address] [place] [phone] <No scans attached> 02/29/[address] [phone] Amalia Sheth, DO Follow Up (returning call ) 02/29/2024 Nurse Triage [address] [phone] Domenic Amaliapenny Tay DO Headache 02/28/2024 1:40 PM CDT Office Visit [facility] at [facility] [address] [place] [address] Michael Edouard MD Procedure (Left L3-4 TFESI) 02/15/2024 Transcribe Orders [facility] [address] [place] [address] Michael Edouard MD 02/06/2024 1:45 PM CDT - 02/06/2024 11:59 PM CDT Hospital Encounter [facility] [address] [place] [address] Kristin Ernandez PA Lumbar radiculopathy 02/06/2024 Travel 02/03/2024 Transcribe Orders [facility] [address] [place] [address] Kristin Ernandez PA 01/18/2024 11:30 AM CDT Office Visit [facility] [address] [place] [address] Phil Alcazar MD Sleep Follow-up 01/18/2024 Travel 01/17/2024 Orders Only [facility] Scanner 1 scan: (1-Ord) RESMED, COMPLIANCE REPORT, 01/17/2024 from Last 3 Months Immunizations Name Administration [...] Sign Reading Time Taken Comments Blood Pressure 138/84 03/19/2024 1:29 PM CDT Pulse 61 03/19/2024 1:29 PM CDT Temperature 36.8 ??C (98.2 ??F) 12/16/2023 9:18 AM CD T Respiratory Rate 16 03/19/2024 1:29 PM CDT Oxygen Saturation 96% 03/19/2024 1:29 PM CDT Inhaled Oxygen Concentration - - Weight 150 kg (330 lb 9.6 oz) 03/19/2024 1:29 PM CDT Height 177.8 cm (5' 10) 03/19/2024 1:29 PM CDT Body Mass Index 47.44 03/19/2024 1:29 PM CDT Plan of Treatment Upcoming Encounters Date Type Department Care Team (Late st Contact Info) Description 03/27/2024 11:20 AM CDT Office Visit [facility] [address] [place] [address] Michael Edouard MD [address] [place] [address] Arrived 09/17/2024 2:20 PM WIC SITE COORDINATOR Office Visit [facility] [address] [place] [phone] Amalia Sheth DO [address] [place] [address] Health Maintenance Due Date Last Done Comments HIV for age 15-65 1975 COVID-19 vaccine series (2022- season) 2023 09/16/2022, 07/29/2021, 02/09/2021, Additional history exists Tetanus booster 03/23/2024 03/23/2014, 06/02/2006 Influenza for age 50-64 05/27/2024 06/21/20 23, 06/10/2022, 06/17/2021, Additional history exists Depression screening for age 12+ 10/13/2024 10/13/2023, 07/07/2023, 07/07/2023, Additional history exists BMI (ht and wt on same day) for age 18+ 03/19/2025 03/19/2024, 01/18/2024, 12/16/2023, Additional history exists Colonoscopy through age 75 06/27/2027 06/27/2017, Lipids for age 45-75 03/19/2029 03/19/2024, 09/01/2021, 04/23/2020 Pneumococcal series for age 6-64 Aged Out 08/24/2008 No longer eligible based on patient's age to complete this topic Tdap Completed 03/23/2014, 06/02/2006 Hepatitis C screening for age 18-79 Completed 07/16/2020 Zoster (shingles) series for age 50+ Completed 04/19/2022, 01/18/2022 Medical Devices Implanted Type [employer] Device Identifier Shelf Expiration Date Model / Serial / Lot Screw Canclls [id number] Selftapping - [id number] Implanted:Qty: 1 on 05/18/2013 by Jeromy Harper MD at [facility] Spine Implants N/A: Cervical Vertebrae J And J Depuy Spine 487.056# / / Screw Cerv [id number] Lock 497.78 Synthes - [id number] Implanted:Qty: 4 on 05/18/2013 by Jeromy Harper MD at [facility] Spine Implants N/A: Cervical Vertebrae J And J Depuy Spine 497.78# / / Screw Cerv Ant [id number] Cslp Canclls Slf Tppng Expansion He - [id number] Implanted:Qty: 2 on 06/04/2022 by Jeromy Harper MD at [facility] Spine Implants N/A: Spine J And J Depuy Spine 487.056 / / Spacer Cage [id number] 6deg Bengal Stackable - [id number] Implanted:Qty: 1 on 05/18/2013 by Jeromy Harper MD at [facility] N/A: Cervical Vertebrae J And J Depuy Spine [id number]# / / Screw Expansionhead [id number] Cortex Self Tapping - [id number] Implanted:Qty: 3 on 05/18/2013 by Jeromy Harper MD at [facility] N/A: Cervical Vertebrae J And J Depuy Spine 487.044# / / Plate Cerv 37mm - [id number] Implanted:Qty: 1 on 05/18/2013 by Jreomy Harper MD at [facility] N/A: Cervical Vertebrae J And J Depuy Spine 450.164# / / Spacer Cage Lmbr 96i78pg Synmesh - [id number] Implanted:Qty: 1 on 06/04/2022 by Jeromy Harper MD at [facility] N/A: Spine Depuy Synthes Companies 495.615 / / Screw Cerv Ant 4x16mm Cslp Dean Slf Tpping Expansion Hea - [id number] Implanted:Qty: 2 on 06/04/2022 by Jeromy Harper MD at [facility] N/A: Spine J And J Depuy Spine 487.046 / / Plate Cerv 2lvl 37mm Cslp Variable Titnm Implanted:Qty: 1 on 06/04/2022 by Jeromy Harper MD at [facility] N/A: Spine 450.164 / / Description:PLATE CERV 2LVL 37MM CSLP VARIABLE TITNM Daphney Ti Cvd 50mm Implanted:Qty: 2 on 07/23/2022 by Jeromy Harper MD at [facility] N/A: Spine SD498.13 3 / / Description:DAPHNEY TI CVD 50MM [id number] one 1-4mm 30cc Medtronic Chips Canclls Freeze Dried Implanted:Qty: 1 on 07/23/2022 by Jeromy Harper MD at [facility] Explanted:at [facility] (Quantity not on file) N/A: Spine Medtronic Spine/Ortho 06/03/2026 [id number] / [id number] / Screw Cerv Post 3.5x12mm Synapse Va Canncls Titnm - [id number] Implanted:Qty: 8 on 07/23/2022 by Jeromy Harper MD at [facility] N/A: Spine J And J Depuy Spine 04.614.0 12 / / Set Screw Cerv Synapse - [id number] Implanted:Qty: 8 on 07/23/2022 by Jeromy Haprer MD at [facility] N/A: Spine J And J Depuy Spine 04.614.5 08 / / Procedures Procedure Name Priority Date/Time Associated Diagnosis Comments AMB EPIDURAL STEROID INJECTION Routine 03/27/2024 8:11 AM CDT Lumbar stenosis with neurogenic claudication CBC WITH AUTO DIFFERENTIAL Routine 03/19/2024 2:19 PM CDT ASCVD (arteriosclerotic cardiovascular disease) Hypertension Other hyperlipidemia PSA TOTAL SCREEN Routine 03/19/2024 2:19 PM CDT Prostate cancer screening VITAMIN D 25 (DEFICIENCY) Routine 03/19/2024 2:19 PM CDT Low serum vitamin D MAGNESIUM Routine 03/19/2024 2:19 PM CDT Chronic GERD COMP METABOLIC PANEL Routine 03/19/2024 2:19 PM CDT Hypertension Other hyperlipidemia LIPID PANEL W REFLEX MEASURED LDL Routine 03/19/2024 2:19 PM CDT Hypertension Other hyperlipidemia CBC WITH AUTO DIFFERENTIAL Routine 03/19/2024 2:19 PM CDT ASCVD (arteriosclerotic cardiovascular disease) Hypertension Other hyperlipidemia AMB EPIDURAL STEROID INJECTION Routine 02/28/2024 12:00 AM CDT Lumbar radiculopathy MR SPINE LUMBAR WO MEETA 02/06/2024 2: 19 PM CDT Lumbar radiculopathy SCAN-DIAGNOSTIC REPORT 01/17/2024 12:00 AM CDT ANTI HCV Routine 07/16/2020 10:35 AM CDT Need for hepatitis C screening test COLONOSCOPY 06/27/2017 11:00 AM CDT from Last 3 Months or Most Recently Relevant to Health Maintenance Results * CBC WITH AUTO DIFFERENTIAL (03/19/2024 2:19 PM CDT) WHITE BLOOD COUNT 7.8 4.5 - 11.0 thou/cu mm 03/19/2024 2:28 PM CDT [facility] RED BLOOD COUNT 4.75 4.30 - 5.90 mil/cu mm 03/19/2024 2:28 PM CDT [facility] HEMOGLOBIN 14.5 13.5 - 17.5 g/dL 03/19/2024 2:28 PM [facility] HEMATOCRIT 44.7 37.0 - 53.0 % 03/19/2024 2:28 PM [facility] MCV 94 80 - 100 fL 03/19/2024 2:28 PM [facility] MCH 30.5 26.0 - 34.0 pg 03/19/2024 2:28 PM [facility] MCHC 32.4 32.0 - 36.0 g/dL 03/19/2024 2:28 PM [facility] RDW 13.9 11.5 - 15.5 % 03/19/2024 2:28 PM [facility] PLATELET COUNT 220 140 - 440 thou/cu mm 03/19/2024 2:28 PM [facility] MPV 9.5 6.5 - 11.0 fL 03/19/2024 2:28 PM [facility] % NEUT 69.0 % 03/19/2024 2:28 PM [facility] % LYMPH 21.7 % 03/19/2024 2:28 PM [facility] % MONO 7.7 % 03/19/2024 2:28 PM [facility] % EOS 1.1 % 03/19/2024 2:28 PM [facility] % BASO 0.5 % 03/19/2024 2:28 PM [facility] ABSOLUTE NEUTROPHILS 5.4 1.7 - 7.0 thou/cu mm 03/19/2024 2:28 PM [facility] ABSOLUTE LYMPHOCYTES 1.7 0.9 - 2.9 thou/cu mm 03/19/2024 2:28 PM [facility] ABSOLUTE MONOCYTES 0.6 <0.9 thou/cu mm 03/19/2024 2:28 PM [facility] ABSOLUTE EOSINOPHILS 0.1 <0.5 thou/cu mm 03/19/2024 2:28 PM [facility] ABSOLUTE BASOPHILS 0.0 <0.3 thou/cu mm 03/19/2024 2:28 PM CDT [facility] Blood BLOOD SPECIMEN / Unknown Venipuncture / Unknown 03/19/2024 2:19 PM CDT 03/19/2024 2:19 PM CDT Amalia Sheth DO HEMATOLOGY [facility] [address] [place] [address] * (ABNORMAL) LIPID PANEL W REFLEX MEASURED LDL (03/19/2024 2:19 PM CDT) CHOLESTEROL,TOTAL 173 100 - 199 mg/dL 03/19/2024 2:48 PM T [facility] Comment: Cholesterol, Total Reference Ranges Desirable <200 mg/dL Borderline 200-239 mg/dL High >=240 mg/dL TRIGLYCERIDES 161(H) <150 mg/dL 03/19/2024 2:48 PM T [facility] HDL CHOLESTEROL 38(L) >40 mg/dL 2:48 PM T [facility] NON-HDL CHOLESTEROL 135 <145 mg/dl 03/19/2024 2:48 PM T [facility] CHOL/HDL RATIO 4.55(H) <4.50 03/19/2024 2:48 PM T [facility] LDL CHOLESTEROL 103 <=130 mg/dL 03/19/2024 2:48 PM T [facility] VLDL CHOLESTEROL 32(H) <=30 mg/dL 03/19/2024 2:48 PM T [facility] PROVIDER ORDERED STATUS RANDOM 03/19/2024 2:48 PM T [facility] Blood BLOOD SPECIMEN / Unknown Venipuncture / Unknown 03/19/2024 2:19 PM CDT 03/19/2024 2:19 PM CDT Amalia Sheth DO CHEMISTRY [facility] [address] [place] [address] * VITAMIN D 25 (DEFICIENCY) (03/19/2024 2:19 PM CDT) Pathologist [facility] VITAMIN D TOTAL 39.8 20.0 - 80.0 ng/mL 03/20/2024 12:45 PM CDT [facility] Blood BLOOD SPECIMEN / Unknown Venipuncture / Unknown 03/19/2024 2:19 PM CDT 03/19/2024 2:19 PM CDT Narrative [facility] - 03/20/2024 12:45 PM CDT ? Vitamin D Status Deficiency: ? <20 ng/mL Insufficiency: ?20-29 ng/mL Sufficiency: ?30-80 ng/mL Possible Toxicity: ??>80 ng/mL Based on [place] of Medicine recommendations Biotin supplements may cause clinically significant interference for this test assay. ??If interference is suspected, it is strongly recommended that biotin is discontinued for at least one week prior to retesting. Amalia Sheth DO SEND OUTS Performing Organization Address City/[facility]/ZIP Co de Phone Number [facility] [address] * MAGNESIUM (03/19/2024 2:19 PM CDT) Pathologist [facility] MAGNESIUM 2.0 1.6 - 2.4 mg/dL 03/19/2024 2:48 PM CDT [facility] Blood BLOOD SPECIMEN / Unknown Venipuncture / Unknown 03/19/2024 2:19 PM CDT 03/19/2024 2:19 PM CDT Amalia Sheth DO CHEMISTRY [facility] [address] [place] [address] * (ABNORMAL) COMP METABOLIC PANEL (03/19/2024 2:19 PM CDT) Pathologist [facility] SODIUM 141 136 - 145 mmol/L 03/19/2024 2:48 PM [facility] POTASSIUM 4.4 3.5 - 5.1 mmol/L 03/19/2024 2:48 PM [facility] CHLORIDE 104 98 - 107 mmol/L 03/19/2024 2:48 PM [facility] CO2,TOTAL 28 22 - 29 mmol/L 03/19/2024 2:48 PM [facility] ANION GAP 9 5 - 18 03/19/2024 2:48 PM [facility] GLUCOSE 123(H) 70 - 99 mg/dL 03/19/2024 2:48 PM [facility] CALCIUM 9.5 8.8 - 10.2 mg/dL 03/19/2024 2:48 PM [facility] BUN 14 8 - 23 mg/dL 03/19/2024 2:48 PM [facility] CREATININE 0.95 0.70 - 1.20 mg/dL 03/19/2024 2:48 PM [facility] BUN/CREAT RATIO 15 10 - 20 2:48 PM [facility] eGFR 90(L) >90 mL/min/1.7 3m2 03/19/2024 2:48 PM [facility] Comment:As of 2021, eG FR is calculated by the CKD-EPI creatinine equation without race adjustment. ??eGFR can be influenced by muscle mass, exercise, and diet. ??The reported eGFR is an estimation only and is only applicable if the renal function is stable. ALBUMIN 4.0 4.0 - 4.9 g/dL 03/19/2024 2:48 PM [facility] PROTEIN,TOTAL 6.8 6.0 - 8.0 g/dL 03/19/2024 2:48 PM [facility] BILIRUBIN,TOTAL 0.5 0.0 - 1.2 mg/dL 03/19/2024 2:48 PM [facility] ALK PHOSPHATASE 151(H) 40 - 129 IU/L 03/19/2024 2:48 PM [facility] ALT (SGPT) 18 10 - 50 IU/L 03/19/2024 2:48 PM CDT [facility] AST (SGOT) 17 10 - 50 IU/L 03/19/2024 2:48 PM CDT [facility] Blood BLOOD SPECIMEN / Unknown Venipuncture / Unknown 03/19/2024 2:19 PM CDT 03/19/2024 2:19 PM CDT Amalia Sheth DO CHEMISTRY [facility] [address] [place] [address] * PSA TOTAL SCREEN - Dx Auto-associated (03/19/2024 2:19 PM CDT) PSA TOTAL (SCREEN) 0.51 <4.00 ng/mL 03/20/2024 12:45 PM CDT [facility] Blood BLOOD SPECIMEN / Unknown Venipuncture / Unknown 03/19/2024 2:19 PM CDT 03/19/2024 2:19 PM CDT Narrative [facility] - 03/20/2024 12:45 PM CDT The test method changed on 03/22/2023. If this test has been used for serial monitoring, rebaselining is recommended. Rebaselining consists of 2 measurements, collected 3-6 weeks apart. The Ale Elecsys total PSA assay is an electrochemiluminescence immunoassay ECLIA performed on the Ale Alayna e immunoassay analyzers. Values obtained with different assay methods may be different and cannot be used interchangeably. Amalia Sheth DO LABORATORY [facility] [address] [place] [address], * AMB EPIDURAL STEROID INJECTION (02/28/2024 12:00 AM CDT) Michael Edouard MD NEUROLOGY ORD * MR SPINE LUMBAR WO (02/06/2024 2:19 [...] or suspicious bone lesion. Laminectomy defects at L4-H6yncxxc unchanged. Disc levels: L1-L2: Mild disc space [...] (01/17/2024 12:00 AM CDT) Scanner OTHER * ANTI HCV (07/16/2020 10:35 AM CDT) HEPATITIS C ANTIBODY Non-React vinnie Non-React vinnie 07/16/2020 4:48 PM CDT [facility] Comment:Antibodies to HCV no t detected; does not exclude the possibility of exposure to HCV. Blood BLOOD SPECIMEN / Unknown Venipuncture / Unknown 07/16/2020 10:35 AM CDT 07/16/2020 10:36 AM CDT Amalia Sheth DO SEND OUTS [facility] [address] [place] [address], * COLONOSCOPY (06/27/2017 11:00 AM CDT) 06/27/2017 11:0 0 AM CDT Narrative Transcriptions Desmond Burns MD - 06/27/2017 11:37 AM CDT Patient Name: Simon Mosher Procedure Date: 06/27/2017 Gender: Male Date of : 1960 Admit Type: Ambulatory Procedure: Colonoscopy Proceduralist: Desmond Burns [facility] Referring MD: Michael Bosch [...] Not DiscussedPer Existin g Order Care Teams Vp Packaging Relationship Specialty Start Date End Date Amalia Sheth DO [address] [facility] [place] [address] PCP - General Internal Medicine 06/07/[address] [address] 08/08/22
--- OUTSIDE RECORDS SUMMARY | 2024-03-27 10:51 | XMS_ITS | Continuity of Care Document ---
Author Organization [facility] Address [address] [place] [address] Phone Care Team Providers Care [employer] Teacher Name Role Phone Jeromy Harper MD Unavailable Unavailable Allergies, Adverse Reactions, Alerts Substance Reaction Status Criticality Penicillins Active No Information Medications Medication Instructions Dosage Effective Dates (start - stop) Status Comments oxycodone 5 mg tablet Take 1 tablet QD as needed for severe pain - Active MELOXICAM (unknown strength) Not Available [...] FLOMAX (unknown strength) Not Available - Active oxycodone 5 mg tablet Take 1 tablet every 6-8 hours as needed for severe pain - No Longer Active Procedures Procedure Date Postop Followup Visit Postop Followup Visit Remove Anterior Instrumentation 024 [...] Morcelized, and/or BMP Autograft, From Same Incision 2 Postop Followup Visit Corpectomy, Cervical - PA Anterior Interbody Fusion, Cervical - PA Anterior Interbody Fusion - Additional L evel - PA Anterior Instrumentation, 2-3 Segments - PA PEEK/ Cage/ Implant, For Corpectomy & Fu vidal - PA Anterior Interbody Fusion, Cervical Anterior Interbody Fusion - Additional L evel(s) Corpectomy, Cervical Anterior Instrumentation, 2-3 Segments S PEEK/ Cage/ Implant, For Corpectomy & Fu viadl Autograft, From Same Incision OFFICE/OUTPATIENT VISIT EST [...] Diagnoses Date Provider Providers Copied on Encounter [facility], [address], [place], [place], [id number], [place] tel:[phone] [facility] Encounter for other specified surgical aftercareSpin al stenosis, lumbar region with neurogenic claudication 4 Meredith Pinzon. [facility], [address], [address], [place], [place], [id number], [place]. tel:[phone] Referring Provider: Amalia Sheth, [address], [address]. tel:[phone] [facility], [address], [place], [place], [id number], [place] tel: [phone] [facility] No Information 4 Awais Foster. [facility], [address], [place], [address], [place]. tel:[phone] [facility], [address], [place], [place], [id number], [place] tel: [phone] [facility] [place] Pseudarthrosi s after fusion or arthrodesisAr throdesis status 4 Awais Foster. [facility], [address], [place], [address], [place]. tel:[phone] Referring Provider: Amalia Sheth, [address], [address]. tel:[phone] [facility], [address] [place] [address], [id number], [place] tel: [phone] [facility] No Information 4 Meredith Pinzon. [facility], [address] [place], [address], [id number], [place]. tel:[phone] Referring Provider: Amalia Sheth, [address], [address]. tel:[phone] Office/Outpa tient Visit,Est, Mod [facility], [address] [place] [address], [id number], [place] tel:[phone] [facility] Arthrodesis statusPseudar throsis after fusion or arthrodesis 4 Meredith Pinzon. [facility], [address], [address], [id number], [place]. tel:[phone] Referring Provider: Amalia Sheth, [address], [address]. tel:[phone] Office/Outpa tient Visit,Est, Mod [facility], [address] [place] [address], [id number], [place] tel:[phone] [facility] [place] Arthrodesis status 3 Meredith Pinzon. [facility], [address], [address], [id number], [place]. tel:[phone] Referring Provider: Amalia Sheth, [address], [address]. tel:[phone] Office/Outpa tient Visit,Est, Mod [facility], [address] [place] [address], [id number], [place] tel:[phone] [facility] [place] Arthrodesis status 3 Meredith Pinzon. [facility], [address], [address], [id number], [place]. tel:[phone] Referring Provider: Amalia Sheth, [address], [address]. tel:[phone] Office/Outpa tient Visit,Est, Mod [facility], [address] [place] [address], [id number], [place] tel:[phone] [facility] Arthrodesis status 3 Meredith Pinzon. [facility], [address], [address], [id number], [place]. tel:[phone] Referring Provider: Amalia Sheth, [address], [address]. tel:[phone] Office/Outpa tient Visit,Est, Mod [facility], [address], [place], [id number], [place] tel:[phone] [facility] [place] No Information 3 Meredith Pinzon. [facility], [address], [address], [id number], [place]. tel:[phone] Referring Provider: Amalia Sheth, [address], [address]. tel:[phone] [facility], [address], [place], [place], [id number], [place] tel:[phone] [facility] [place] Arthrodesis status 2 Meredith Pinzon. [facility], [address] [place], [address], [id number], [place]. tel:[phone] Referring Provider: Amalia Sheth, [address], [address]. tel:[phone] [facility], [address], [place], [place], [id number], [place] tel:[phone] [facility] No Information 2 Awais Kristin. [facility], [address] [place] [address], [address], [place]. tel:[phone] Referring Provider: Amalia Sheth, [address], [address]. tel:[phone] [facility], [address] [place] [address], [id number], [place] tel:[phone] [facility] No Information 2 Meredith Pinzon. [facility], [address] [place] [address], [address], [id number], [place]. tel:[phone] Referring Provider: Amalia Sheth, [address], [address]. tel:[phone] [facility], [address], [place], [id number], [place] tel:[phone] [facility] [place] Arthrodesis status 2 Awais Kristin. [facility], [address] [place] [address], [address], [place]. tel:[phone] Referring Provider: Amalia Sheth, [address], [address]. tel:[phone] [facility], [address] [place] [address], [id number], [place] tel:[phone] [facility] No Information May- 2 Awais Foster. [facility], [address], [place], [place]. tel:[phone] Referring Provider: Amalia Sheth, [address], [address]. tel:[phone] [facility], [address] [place] [address], [id number], [place] tel:[phone] [facility] No Information May- 2 Meredith Pinzon. [facility], [address] [place], [address], [id number], [place]. tel:[phone] Referring Provider: Amalia Sheth, [address], [address]. tel:[phone] OFFICE/OUTPA TIENT VISIT EST Phone [facility], [address] [place] [address], [id number], [place] tel:[phone] [facility] - [facility] No Information 2 Meredith Pinzon. [facility], [address] [place], [address], [id number], [place]. tel:[phone] Referring Provider: Amalia Sheth, [address], [address]. tel:[phone] Office/Outpa tient Visit,Est, Mod [facility], [address] [place] [address], [id number], [place] tel:[phone] [facility] [place] Arthrodesis statusSpinal stenosis, lumbar region with neurogenic claudicationO ther spondylosis with myelopathy, lumbar regionSpinal stenosis, cervical regionMyelopa thy 2 Meredith Pinzon. [facility], [address], [address], [id number], [place]. tel:[phone] Referring Provider: Amalia Sheth, [address], [address]. tel:[phone] [facility], [address], [place], [place], [id number], [place] tel:[phone] [facility] Encounter for other specified surgical aftercareRadi culopathy, lumbar region Avni- 1 Meredith Pinzon. [facility], [address], [address], [place], [place], [id number], [place]. tel:[phone] Referring Provider: Amalia Sheth, [facility] [address] [place] [address], [place], [address]. tel:[phone] [facility], [address] [place] [address], [id number], [place] tel:[phone] [facility] Encounter for other specified surgical aftercare Jul- 0- 0 No Information Referring Provider: Amalia Sheth, [address], [address]. tel:[phone] [facility], [address] [place] [address], [id number], [place] tel:[phone] [facility] No Information 0 No Information Referring Provider: Amalia Sheth, [facility] [address] [place] [address], [address]. tel:[phone] [facility], [address] [place] [address], [id number], [place] tel:[phone] [facility] No Information 0 Meredith Pinzon. [facility], [address], [address], [place], [place], [id number], [place]. tel:[phone] Referring Provider: Amalia Sheth, ITYZ [address] [place] [address], [address]. tel:[phone] Office/Outpa tient Visit,Est, Mod [facility], [address], [place], [place], [id number], [place] tel:[phone] [facility] Spinal stenosis, lumbar region with neurogenic claudication May-2 0 Meredith Pinzon. [facility], [address], [address], [place], [place], [id number], [place]. tel:[phone] Referring Provider: Amalia Sheth, [address], [address]. tel:[phone] Office/Outpa tient Visit,New, Mod [facility], [address], [place], [place], [id number], [place] tel:[phone] [facility] No Information 0 No Information Referring Provider: Amalia Sheth, [address], [address]. tel:[phone] Office/Outpa tient Visit,Est, Mod [facility], [address], [place], [place], [id number], [place] tel:[phone] [facility] CervicalgiaOV ERWEIGHTCervi zena radiculopathy Non union of fx Dec-0 5 Meredith Pinzon. [facility], [address], [facility] [address], [place], [id number], [place]. tel:[phone] Referring Provider: Michael Gunter, [address], [address]. tel:[phone] Office/Outpa tient Visit,Est, Low Z [facility], [address] [place] [address], [address], [place] tel:[phone] [facility] No Information 4 Meredith Pinzon. [facility], [address], [address], [place], [id number], [place]. tel:[phone] Referring Provider: Michael Gunter, [facility] [address] [place], [address]. tel:[phone] Z [facility], [address] [place] [address], [address], [place] tel:[phone] [facility] No Information 3 Meredith Pinzon. [facility], [address], [address], [place], [id number], [place]. tel:[phone] Referring Provider: Michael Gunter, [address], [address]. tel:[phone] Z [facility], [address] [place] [address], [address], [place] tel:[phone] [facility] [place] No Information 3 Meredith Pinzon. [facility], [address], [address], [id number], [place]. tel:[phone] Referring Provider: Michael Gunter, [address], [address]. tel:[phone] Z [facility], [address], [address], [place] tel:[phone] [facility] No Information 3 Meredith Pinzon. [facility], [address] [place], [address], [id number], [place]. tel:[phone] Referring Provider: Michael Gunter, [address], [address]. tel:[phone] Office/Outpa tient Visit,[facility], [facility] Z [facility], [address] [facility], [place], [address], [place] tel:[phone] [facility] Hypercholeste rolemiaGERDHy pertension, Unspecified 3 Meredith Pinzon. [facility], [address] [place], [address], [id number], [place]. tel:[phone] Referring Provider: Michael Gunter, [address], [address]. tel:[phone] Family History Family Member Type Diagnosis Age At Onset No Information Payers Payer name Insurance type Covered alliance party ID Fran crisostomo(s) Perry Winters 2021 [id number] Social History Type Description Quantity Date Captured Comments Alcohol Use Details Unknown Caffeine Use Details Unknown Tobacco Use Status No Information Smoking Status No Information Sex Male Vital Signs Date / Time: Height Weight BMI Pulse Rate Blood Pressure Temperature Respiratory Rate Body Surface Area Head Circumference Head Circ. Percentile Wt./Milo. Percentile BMI percentile Pulse Ox Inhaled Ox 1:18 PM 69.00 in 147.418 kg (325.00 lbs) 47.9 9 kg/m nikoer (2) Chief Complaint And Reason For Visit No Information Reason For Referral Reason For Referral No Information Plan Of Treatment Date Type Action Status Future Order: Radiology Order Ce rvl 4-5 Views ([id number]), Ordered on: Ordered Future Order: Radiology Order F/ E Cervical (F/Ecervical), Ordered on: Ordered History Of Present Illness Encounter Date Complaint History Of Prese nt Illness No Information Functional Status Date Functional Assessmen t No Information Instructions Date Instruction Additional Infor mation Weight Management Related to Ove [facility] Assessments Type Assessment Date No Information Patient Care Teams Name Effective Dates (start - stop) Status Members No Information
== END 2024-03-27 10:49 | disposition home or self-care (01) ==
LOC: INJ CL 10:49
PROVIDERS: PCP Internal Medicine; Visit Provider Family Medicine
DX: M54.16 Radiculopathy, lumbar region (principal); M51.36 Other intervertebral disc degeneration, lumbar region
CPT/HCPCS: 64483; J1100; Q9966